=== PATIENT | female | born 1935 | race Caucasian/White ===

== ENCOUNTER → 2018-02-10 | Outpatient (CLI) | payer MEDICARE ==
[~2018-02-10] MED LIST: ASPIRIN81 MG PO; AZOPT10 ML OU; BENEFIBER1 EACH; BENEFIBER1 EACH PO; CLARITIN-D 241 EACH PO; CLORAZEPATE DI7.5 MG PO; COUMADIN5 MG PO; DEXILANT60 MG PO; DIOVAN160 MG PO; DOXEPIN HCL50 MG PO; HUMALOG100 UNITS/ SQ; HYDROCHLOROTHIA25 MG PO; LANTUS100 UNITS/ SQ; LEVOTHYROXINE100 MCG PO; LIPITOR40 MG PO; PROCARDIA XL30 MG PO; PROPRANOLOL HCL20 MG PO; TRAVATAN Z5 ML OU; WARFARIN SODIU2.5 MG PO; XARELTO20 MG; Z.0.DIOVAN160 MG PO; Z.0.TERAZOSIN HCL5 M
--- NOTE | 2018-02-10 16:47 | Diagnostic Imaging Report ---
Exam: Right shoulder 2 views History: Pain Comparison: None. Findings: No fracture or malalignment. Narrowing of the acromiohumeral interval with spurring. 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 No abnormal soft tissue calcification or soft tissue defect. Impression: No acute osseous abnormality Radiographic findings of chronic full-thickness rotator cuff tear Signed by: Dr. Ta Davies M.D. on 02/10/2018 4:44 PM
== END ==
LOC: RAD 15:19
DX: M25.511 Pain in right shoulder (principal)

== ENCOUNTER → 2020-03-08 | Day surgery (SDC) | payer MEDICARE, OTHER ==
[~2020-03-08] MED LIST changes: +FENTANYL CITRATE/PF 100MCG/2 ML INJ ONE; +IRBESARTAN150 MG PO; +METOPROLOL SUCC25 MG PO; +MIDAZOLAM HCL 2 MG/2 ML VIAL ONE; +OR PHACO EYE KIT ONE; +PREOP PHACO EYE KIT ONE; +TOBRAMYCIN/DEXAMETHASONE(OPTH) 3.5 GM TUBE ONE
[2020-03-08 10:15] LABS: INR 1.06; PROTHROMBIN TIME 14.3 seconds (11.9-14.5)
[2020-03-08 10:19] LABS: PARTIAL THROMBOPLASTIN TIME 35.3 seconds (23.8-35.5)
[2020-03-08 11:35] VITALS: BP 141/58
== END | disposition home or self-care (01) ==
LOC: OR 08:39
PROVIDERS: ATTEND Ophthalmology
DX: H25.12 Age-related nuclear cataract, left eye (principal); I48.92 Unspecified atrial flutter; I45.10 Unspecified right bundle-branch block; E11.9 Type 2 diabetes mellitus without complications; I10 Essential (primary) hypertension; E78.5 Hyperlipidemia, unspecified; M19.90 Unspecified osteoarthritis, unspecified site; F41.9 Anxiety disorder, unspecified; Z88.6 Allergy status to analgesic agent; Z88.0 Allergy status to penicillin; Z88.8 Allergy status to other drugs, medicaments and biological substances; Z01.812 Encounter for preprocedural laboratory examination; Z11.59 Encounter for screening for other viral diseases; Z79.01 Long term (current) use of anticoagulants; Z79.4 Long term (current) use of insulin
CPT/HCPCS: 36415; 66984; 82948; 85610; 85730; U0002; J2250; J3010; V2632

== ENCOUNTER → 2020-03-22 | Day surgery (SDC) | payer MEDICARE ==
[2020-03-22 11:10] VITALS: BP 151/64
== END | disposition home or self-care (01) ==
LOC: OR 08:41
PROVIDERS: ATTEND Ophthalmology
DX: H25.11 Age-related nuclear cataract, right eye (principal); I48.92 Unspecified atrial flutter; R53.1 Weakness; M19.90 Unspecified osteoarthritis, unspecified site; C69.91 Malignant neoplasm of unspecified site of right eye; I10 Essential (primary) hypertension; E78.5 Hyperlipidemia, unspecified; E11.9 Type 2 diabetes mellitus without complications; E03.9 Hypothyroidism, unspecified; K28.9 Gastrojejunal ulcer, unspecified as acute or chronic, without hemorrhage or perforation; F41.9 Anxiety disorder, unspecified; Z88.6 Allergy status to analgesic agent; Z88.0 Allergy status to penicillin; Z88.8 Allergy status to other drugs, medicaments and biological substances; Z79.01 Long term (current) use of anticoagulants; Z79.4 Long term (current) use of insulin
CPT/HCPCS: 36415; 66984; 82948; J2250; J3010; V2632

== ENCOUNTER 2020-12-28 13:19 | Emergency (ER) | payer MEDICARE ==
[~2020-12-28] VITALS: Ht 172.7 cm; Wt 81.6 kg
[~2020-12-28 13:19] MED LIST changes: -FENTANYL CITRATE/PF 100MCG/2 ML INJ ONE; -MIDAZOLAM HCL 2 MG/2 ML VIAL ONE; -OR PHACO EYE KIT ONE; -PREOP PHACO EYE KIT ONE; -TOBRAMYCIN/DEXAMETHASONE(OPTH) 3.5 GM TUBE ONE
[2020-12-28] MEDS ORDERED: CASIRIVIMAB/IMDEVIMAB 10 ML in SODIUM CHLORIDE 0.9% 100 ML IV ONE (13:45)
== END 2020-12-28 16:41 | disposition home or self-care (01) ==
LOC: ER 13:59
DX: U07.1 COVID-19 (principal); S00.93XA Contusion of unspecified part of head, initial encounter; W01.0XXA Fall on same level from slipping, tripping and stumbling without subsequent striking against object, initial encounter; Z91.81 History of falling; Y92.014 Private driveway to single-family (private) house as the place of occurrence of the external cause
CPT/HCPCS: 70450; 70486; 71045; 72170; 99284; J7050

== ENCOUNTER 2022-01-11 18:03 | Emergency (ER) | payer MEDICARE ==
[~2022-01-11] VITALS: Ht 172.7 cm; Wt 81.6 kg
[2022-01-11] MEDS ORDERED: BEBTELOVIMAB 175 MG INJ IV ONE ×2 (19:15→19:23)
[2022-01-11 22:31] VITALS: BP 128/86
== END 2022-01-11 20:10 | disposition home or self-care (01) ==
LOC: ER 18:10
DX: R50.9 Fever, unspecified (principal); U07.1 COVID-19; R05.9 Cough, unspecified; I10 Essential (primary) hypertension; E11.9 Type 2 diabetes mellitus without complications; I48.91 Unspecified atrial fibrillation; I25.10 Atherosclerotic heart disease of native coronary artery without angina pectoris; E78.5 Hyperlipidemia, unspecified; D64.9 Anemia, unspecified; E66.01 Morbid (severe) obesity due to excess calories; Z85.89 Personal history of malignant neoplasm of other organs and systems
CPT/HCPCS: 99283; U0002

== ENCOUNTER 2022-09-17 08:45 | Inpatient (IN) | payer MEDICARE ==
[~2022-09-17] VITALS: Ht 157.5 cm; Wt 99.8 kg
[2022-09-17 09:31] LABS: BASOPHILS % 0.3 % (0.0-1.0); EOSINOPHILS # (AUTO) 0.4 (0.0-0.4); EOSINOPHILS % 4.8 % (0.0-6.0); LYMPHOCYTES # (AUTO) 0.8 (1.0-3.2); LYMPHOCYTES % 10.5 % (18.0-39.1); MEAN CORPUSCULAR HEMOGLOBIN 20.5 pg (28-32); MEAN CORPUSCULAR HGB CONC 27.4 g/dL (31-35); MEAN CORPUSCULAR VOLUME 74.7 fL (81-99); MONOCYTES # (AUTO) 0.8 (0.2-0.8); MONOCYTES % 10.1 % (4.4-11.3); NEUTROPHILS # (AUTO) 5.7 (2.1-6.9); NEUTROPHILS % 73.5 % (38.7-80.0); PLATELET COUNT 200 x10e3/uL (140-360); RED BLOOD COUNT 2.88 x10e6/uL (3.6-5.1); RED CELL DISTRIBUTION WIDTH 16.9 % (11.7-14.4)
[2022-09-17 09:38] LABS: HEMATOCRIT 21.5 % (34.2-44.1); HEMOGLOBIN 5.9 g/dL (12.0-16.0)
[2022-09-17 09:50] LABS: INR 2.59; PROTHROMBIN TIME 28.2 seconds (11.9-14.5)
[2022-09-17 09:51] LABS: PARTIAL THROMBOPLASTIN TIME 53.1 seconds (23.8-35.5)
[2022-09-17 10:01] LABS: ALANINE AMINOTRANSFERASE 19 IU/L (0-55); ALBUMIN 3.2 g/dL (3.5-5.0); ALBUMIN/GLOBULIN RATIO 1.2 (0.8-2.0); ALKALINE PHOSPHATASE 150 IU/L (40-150); ANION GAP 9.5 mmol/L (8-16); BLOOD UREA NITROGEN 51 mg/dL (7-26); BUN/CREATININE RATIO 32 (6-25); CALCIUM 8.6 mg/dL (8.4-10.2); CARBON DIOXIDE 29 mmol/L (22-29); CHLORIDE 102 mmol/L (98-107); CREATINE KINASE 51 IU/L (29-168); CREATININE, SERUM 1.59 mg/dL (0.57-1.11); GLUCOSE 305 mg/dL (74-118); POTASSIUM 5.5 mmol/L (3.5-5.1); SODIUM 135 mmol/L (136-145)
[2022-09-17] MEDS ORDERED: SODIUM CHLORIDE FLUSH 10 ML SYR INJ PRN (12:15)
[2022-09-17] MEDS ORDERED: ACETAMINOPHEN 325 MG TAB PO STA (13:01)
[2022-09-17] MEDS ORDERED: DEXAMETHASONE SOD PHOS 10 MG/1 ML VIAL IV ONE (13:15)
[2022-09-17] MEDS ORDERED: FAMOTIDINE 20 MG/2 ML VIAL IV ONE (13:15)
[2022-09-17] MEDS ORDERED: SODIUM CHLORIDE 0.9% 250ML 250 ML IV ONE (13:15)
[2022-09-17] MEDS ORDERED: DIPHENHYDRAMINE HCL INJ 50 MG/ML VIAL IV ONE (13:15)
[2022-09-17] MEDS ORDERED: LACTATED RINGER'S 500 ML IV ONE (14:30)
[2022-09-17 15:00] LABS: ANION GAP 11.4 mmol/L (8-16); CALCIUM 8.6 mg/dL (8.4-10.2); CREATININE, SERUM 1.47 mg/dL (0.57-1.11)
[2022-09-17 15:07] LABS: POTASSIUM 5.4 mmol/L (3.5-5.1)
[2022-09-17] MEDS ORDERED: INSULIN REGULAR, HUMAN 100 UNIT/1 ML IV STA (15:10)
[2022-09-17] MEDS ORDERED: DEXTROSE 50% SYRINGE 50 ML IV ONE (15:15)
[2022-09-17] MEDS ORDERED: CALCIUM GLUC 1 G/50 ML NACL 50 ML IV ONE (15:30)
[2022-09-17 16:19] VITALS: BP 164/56; PULSE 72; RESP 20; TEMP 97.5; O2SAT 100
[2022-09-17 16:24] VITALS: BP 164/56; PULSE 72; RESP 20; TEMP 97.5; O2SAT 100
[2022-09-17 17:46] LABS: ANION GAP 11.9 mmol/L (8-16); CALCIUM 8.8 mg/dL (8.4-10.2); CREATININE, SERUM 1.47 mg/dL (0.57-1.11); POTASSIUM 4.9 mmol/L (3.5-5.1)
[2022-09-17] MEDS ORDERED: SODIUM CHLORIDE 0.9% 250ML 250 ML ONE ×2 (17:46→23:22)
[2022-09-17] MEDS ORDERED: FAMOTIDINE 20 MG/2 ML VIAL IV PRN (18:00)
[2022-09-17] MEDS ORDERED: ACETAMINOPHEN 325 MG TAB PO PRN (18:00)
[2022-09-17] MEDS ORDERED: DEXAMETHASONE SOD PHOS 10 MG/1 ML VIAL IV PRN (18:00)
[2022-09-17] MEDS ORDERED: DIPHENHYDRAMINE HCL INJ 50 MG/ML VIAL IV PRN (18:00)
[2022-09-17 20:00] VITALS: BP 154/61; PULSE 68; RESP 18; TEMP 97.7; O2SAT 100
[2022-09-17] MEDS ORDERED: DEXTROSE 50% SYRINGE 50 ML IV PRN (21:00)
[2022-09-17] MEDS ORDERED: INSULIN GLARGINE 100 UNITS/ML VIAL SQ SCH (21:00)
[2022-09-17] MEDS: INSULIN REGULAR, HUMAN 100 UNIT/1 ML SQ SCH (22:03)
[2022-09-17 22:33] VITALS: BP 154/61; PULSE 68; RESP 18; TEMP 97.7; O2SAT 100
[2022-09-18] VITALS (8 sets, daily range): BP systolic 114–156; BP diastolic 47–66; PULSE 58–81; RESP 16–18; TEMP 97.7–97.9; O2SAT 98–100
[2022-09-18 05:53] LABS: BASOPHILS % 0.1 % (0.0-1.0); EOSINOPHILS % 0.3 % (0.0-6.0); HEMOGLOBIN 8.6 g/dL (12.0-16.0); LYMPHOCYTES # (AUTO) 0.5 (1.0-3.2); LYMPHOCYTES % 6.7 % (18.0-39.1); MEAN CORPUSCULAR HEMOGLOBIN 22.9 pg (28-32); MEAN CORPUSCULAR HGB CONC 29.7 g/dL (31-35); MEAN CORPUSCULAR VOLUME 77.3 fL (81-99); MONOCYTES # (AUTO) 0.1 (0.2-0.8); MONOCYTES % 1.6 % (4.4-11.3); NEUTROPHILS # (AUTO) 6.8 (2.1-6.9); NEUTROPHILS % 90.1 % (38.7-80.0); PLATELET COUNT 212 x10e3/uL (140-360); RED BLOOD COUNT 3.75 x10e6/uL (3.6-5.1); RED CELL DISTRIBUTION WIDTH 19.1 % (11.7-14.4)
[2022-09-18 06:22] LABS: ALBUMIN 3.3 g/dL (3.5-5.0); ALBUMIN/GLOBULIN RATIO 1.2 (0.8-2.0); ANION GAP 12.1 mmol/L (8-16); CALCIUM 9.1 mg/dL (8.4-10.2); CREATININE, SERUM 1.44 mg/dL (0.57-1.11)
[2022-09-18 06:40] LABS: POTASSIUM 6.1 mmol/L (3.5-5.1)
[2022-09-18] MEDS ORDERED: SOD POLYSTYRENE SULFONATE SUSP 15 GM/60 ML BTL PO ONE ×2 (07:45→22:15)
[2022-09-18] MEDS ORDERED: INSULIN REGULAR, HUMAN 100 UNIT/1 ML IV ONE (07:45)
[2022-09-18] MEDS ORDERED: INSULIN LISPRO 100 UNIT/1 ML 3ML VIAL SQ SCH (07:45)
[2022-09-18] MEDS: INSULIN REGULAR, HUMAN 100 UNIT/1 ML SQ SCH ×4 (07:54→21:34)
[2022-09-18] MEDS: PANTOPRAZOLE SOD 40 MG TABEC PO SCH (08:05)
[2022-09-18] MEDS: LEVOTHYROXINE SODIUM 100 MCG TAB PO SCH (08:06)
[2022-09-18] MEDS: METOPROLOL TARTRATE 25 MG TAB PO SCH ×2 (08:06→18:34)
[2022-09-18] MEDS: ATORVASTATIN 40 MG TAB PO SCH (08:07)
[2022-09-18] MEDS: BRINZOLAMIDE 1% OPTH SUSP 10 ML BTL OU SCH ×2 (08:09→18:35)
[2022-09-18] MEDS: CALCIUM GLUC 1 G/50 ML NACL 50 ML IV SCH ×2 (08:35→10:34)
[2022-09-18] MEDS ORDERED: METOPROLOL SUCCINATE 25 MG TAB XL PO SCH (09:00)
[2022-09-18 10:10] LABS: ANION GAP 12.2 mmol/L (8-16); CALCIUM 9.2 mg/dL (8.4-10.2); CREATININE, SERUM 1.41 mg/dL (0.57-1.11); POTASSIUM 5.2 mmol/L (3.5-5.1)
[2022-09-18] MEDS: DOXEPIN HCL 25 MG CAP PO SCH ×2 (10:32→18:33)
[2022-09-18] MEDS: CLORAZEPATE DIPOTASSIUM 3.75 MG TAB PO SCH ×2 (10:32→18:33)
[2022-09-18] MEDS: INSULIN LISPRO 100 UNIT/1 ML 3ML VIAL SQ SCH ×2 (12:15→18:31)
[2022-09-18] MEDS ORDERED: HYDRALAZINE HCL 20 MG/ML VIAL IV PRN (15:30)
[2022-09-18 19:28] LABS: ANION GAP 12.7 mmol/L (8-16); CALCIUM 9.2 mg/dL (8.4-10.2); CREATININE, SERUM 1.52 mg/dL (0.57-1.11)
[2022-09-18 19:29] LABS: POTASSIUM 5.7 mmol/L (3.5-5.1)
[2022-09-18] MEDS: IRBESARTAN 150 MG TAB PO SCH (21:33)
[2022-09-18] MEDS: INSULIN GLARGINE 100 UNITS/ML VIAL SQ SCH (21:36)
[2022-09-18] MEDS: TRAVOPROST(OPTH) 2.5 ML BTL OP SCH (21:48)
[2022-09-18] MEDS ORDERED: INSULIN REGULAR, HUMAN 100 UNIT/1 ML SQ ONE (22:15)
[2022-09-18] MEDS: SENNA-S TABLET PO SCH (23:28)
[2022-09-19] VITALS (9 sets, daily range): BP systolic 107–150; BP diastolic 38–87; PULSE 54–67; RESP 16–22; TEMP 97.3–98.3; O2SAT 88–100
[2022-09-19 05:05] LABS: BASOPHILS % 0.2 % (0.0-1.0); EOSINOPHILS # (AUTO) 0.3 (0.0-0.4); EOSINOPHILS % 3.9 % (0.0-6.0); HEMOGLOBIN 7.6 g/dL (12.0-16.0); LYMPHOCYTES # (AUTO) 1.7 (1.0-3.2); LYMPHOCYTES % 20.1 % (18.0-39.1); MEAN CORPUSCULAR HEMOGLOBIN 22.8 pg (28-32); MEAN CORPUSCULAR HGB CONC 29.2 g/dL (31-35); MEAN CORPUSCULAR VOLUME 78.1 fL (81-99); MONOCYTES # (AUTO) 1.1 (0.2-0.8); MONOCYTES % 13.3 % (4.4-11.3); NEUTROPHILS # (AUTO) 5.3 (2.1-6.9); NEUTROPHILS % 62.1 % (38.7-80.0); PLATELET COUNT 209 x10e3/uL (140-360); RED BLOOD COUNT 3.33 x10e6/uL (3.6-5.1); RED CELL DISTRIBUTION WIDTH 19.7 % (11.7-14.4)
[2022-09-19 05:24] LABS: ANION GAP 9.8 mmol/L (8-16); CALCIUM 8.7 mg/dL (8.4-10.2); CREATININE, SERUM 1.65 mg/dL (0.57-1.11); POTASSIUM 4.8 mmol/L (3.5-5.1)
[2022-09-19] MEDS: INSULIN REGULAR, HUMAN 100 UNIT/1 ML SQ SCH ×4 (07:30→21:00)
[2022-09-19] MEDS: INSULIN LISPRO 100 UNIT/1 ML 3ML VIAL SQ SCH ×3 (08:00→16:50)
[2022-09-19] MEDS ORDERED: SODIUM CHLORIDE 0.9% 500ML 500 ML IV ONE (08:30)
[2022-09-19] MEDS: BRINZOLAMIDE 1% OPTH SUSP 10 ML BTL OU SCH ×2 (09:48→16:38)
[2022-09-19] MEDS: DOXEPIN HCL 25 MG CAP PO SCH ×2 (09:48→16:40)
[2022-09-19] MEDS: SENNA-S TABLET PO SCH ×2 (09:49→16:39)
[2022-09-19] MEDS: CLORAZEPATE DIPOTASSIUM 3.75 MG TAB PO SCH ×2 (09:49→16:40)
[2022-09-19] MEDS: PANTOPRAZOLE SOD 40 MG TABEC PO SCH (09:50)
[2022-09-19] MEDS: METOPROLOL TARTRATE 25 MG TAB PO SCH ×2 (09:50→16:44)
[2022-09-19] MEDS: LEVOTHYROXINE SODIUM 100 MCG TAB PO SCH (09:50)
[2022-09-19] MEDS: ATORVASTATIN 40 MG TAB PO SCH (09:52)
[2022-09-19] MEDS ORDERED: SODIUM CHLORIDE 0.9% 250ML 250 ML IV ONE (16:45)
[2022-09-19] MEDS: INSULIN GLARGINE 100 UNITS/ML VIAL SQ SCH (21:00)
[2022-09-19] MEDS ORDERED: SODIUM CHLORIDE 0.9% 250ML 250 ML ONE (21:22)
[2022-09-19] MEDS: TRAVOPROST(OPTH) 2.5 ML BTL OP SCH (21:55)
[2022-09-19] MEDS: IRBESARTAN 150 MG TAB PO SCH (21:56)
[2022-09-20] VITALS (10 sets, daily range): BP systolic 115–140; BP diastolic 44–99; PULSE 56–92; RESP 16–20; TEMP 97.3–98.1; O2SAT 92–100
[2022-09-20] MEDS ORDERED: ALBUTEROL SULFATE HFA 8GM INHALATION AEROSOL INH PRN (02:15)
[2022-09-20] MEDS ORDERED: FUROSEMIDE INJ 10 MG/ML 2 ML VIAL IV ONE (02:15)
[2022-09-20 05:40] LABS: CLARITY,URINE CLEAR (CLEAR); COLOR,URINE YELLOW (YELLOW); KETONES,URINE NEGATIVE (NEGATIVE); LEUKOCYTE ESTERASE ,URINE NEGATIVE (NEGATIVE); NITRITE,URINE NEGATIVE (NEGATIVE); PROTEIN,URINE DIPSTICK NEGATIVE (NEGATIVE); URINE UROBILINOGEN 0.2 mg/dL (0.2 - 1)
[2022-09-20 05:51] LABS: BACTERIA,URINE MODERATE /HPF; EPITHELIAL CELLS,URINE FEW /LPF
[2022-09-20] MEDS: ATORVASTATIN 40 MG TAB PO SCH (08:36)
[2022-09-20] MEDS: METOPROLOL TARTRATE 25 MG TAB PO SCH ×2 (08:38→17:30)
[2022-09-20] MEDS: PANTOPRAZOLE SOD 40 MG TABEC PO SCH (08:38)
[2022-09-20] MEDS: LEVOTHYROXINE SODIUM 100 MCG TAB PO SCH (08:39)
[2022-09-20] MEDS: DOXEPIN HCL 25 MG CAP PO SCH ×2 (08:39→23:13)
[2022-09-20] MEDS: CLORAZEPATE DIPOTASSIUM 3.75 MG TAB PO SCH ×2 (08:40→23:13)
[2022-09-20] MEDS: INSULIN REGULAR, HUMAN 100 UNIT/1 ML SQ SCH ×4 (08:45→21:00)
[2022-09-20] MEDS: INSULIN LISPRO 100 UNIT/1 ML 3ML VIAL SQ SCH ×3 (08:46→17:00)
[2022-09-20] MEDS: SENNA-S TABLET PO SCH ×2 (08:49→17:31)
[2022-09-20] MEDS: POLYETHYLENE GLYCOL 3350 17 GM PACK PO SCH (08:49)
[2022-09-20] MEDS: BRINZOLAMIDE 1% OPTH SUSP 10 ML BTL OU SCH ×2 (08:58→17:33)
[2022-09-20 10:10] LABS: BASOPHILS % 0.4 % (0.0-1.0); EOSINOPHILS # (AUTO) 0.5 (0.0-0.4); EOSINOPHILS % 6.9 % (0.0-6.0); HEMATOCRIT 31.7 % (34.2-44.1); HEMOGLOBIN 9.4 g/dL (12.0-16.0); LYMPHOCYTES # (AUTO) 1.2 (1.0-3.2); LYMPHOCYTES % 15.2 % (18.0-39.1); MEAN CORPUSCULAR HGB CONC 29.7 g/dL (31-35); MEAN CORPUSCULAR VOLUME 80.9 fL (81-99); MONOCYTES # (AUTO) 0.9 (0.2-0.8); NEUTROPHILS # (AUTO) 5.2 (2.1-6.9); PLATELET COUNT 209 x10e3/uL (140-360); RED BLOOD COUNT 3.92 x10e6/uL (3.6-5.1); RED CELL DISTRIBUTION WIDTH 20.5 % (11.7-14.4)
[2022-09-20 10:12] LABS: ALBUMIN 2.9 g/dL (3.5-5.0); ALBUMIN/GLOBULIN RATIO 1.2 (0.8-2.0); CALCIUM 8.3 mg/dL (8.4-10.2); CREATININE, SERUM 1.75 mg/dL (0.57-1.11)
[2022-09-20] MEDS ORDERED: BISACODYL 10 MG SUPP PR ONE (10:30)
[2022-09-20 12:09] LABS: INR 1.4; PROTHROMBIN TIME 17.7 seconds (11.9-14.5)
[2022-09-20] MEDS ORDERED: EPOETIN ALFA-EPBX 10,000 UNIT/ML VIAL SC ONE (14:30)
[2022-09-20 14:47] LABS: FERRITIN 13.4 ng/mL (4.63-204.00)
[2022-09-20] MEDS ORDERED: FUROSEMIDE INJ 10 MG/ML 4 ML VIAL IV ONE (18:15)
[2022-09-20] MEDS: INSULIN GLARGINE 100 UNITS/ML VIAL SQ SCH (21:00)
[2022-09-20] MEDS: TRAVOPROST(OPTH) 2.5 ML BTL OP SCH (23:12)
[2022-09-20] MEDS: IRBESARTAN 150 MG TAB PO SCH (23:14)
[2022-09-21] VITALS (7 sets, daily range): BP systolic 110–133; BP diastolic 46–80; PULSE 63–79; RESP 17–20; TEMP 97.3–97.9; O2SAT 95–100
[2022-09-21 04:55] LABS: BASOPHILS # (AUTO) 0.1 (0.0-0.1); BASOPHILS % 0.6 % (0.0-1.0); EOSINOPHILS # (AUTO) 0.9 (0.0-0.4); EOSINOPHILS % 9.7 % (0.0-6.0); HEMATOCRIT 35.2 % (34.2-44.1); HEMOGLOBIN 10.2 g/dL (12.0-16.0); LYMPHOCYTES # (AUTO) 1.2 (1.0-3.2); LYMPHOCYTES % 12.5 % (18.0-39.1); MEAN CORPUSCULAR HEMOGLOBIN 23.5 pg (28-32); MEAN CORPUSCULAR VOLUME 81.1 fL (81-99); MONOCYTES % 9.9 % (4.4-11.3); NEUTROPHILS # (AUTO) 6.5 (2.1-6.9); NEUTROPHILS % 66.9 % (38.7-80.0); PLATELET COUNT 233 x10e3/uL (140-360); RED BLOOD COUNT 4.34 x10e6/uL (3.6-5.1); RED CELL DISTRIBUTION WIDTH 20.4 % (11.7-14.4)
[2022-09-21 05:26] LABS: ALBUMIN 3.2 g/dL (3.5-5.0); ALBUMIN/GLOBULIN RATIO 1.1 (0.8-2.0); ANION GAP 13.8 mmol/L (8-16); CALCIUM 8.9 mg/dL (8.4-10.2); CREATININE, SERUM 1.54 mg/dL (0.57-1.11); MAGNESIUM 1.9 MG/DL (1.3-2.1); PHOSPHORUS 3.4 MG/DL (2.3-4.7); POTASSIUM 4.8 mmol/L (3.5-5.1)
[2022-09-21] MEDS: INSULIN REGULAR, HUMAN 100 UNIT/1 ML SQ SCH ×3 (07:30→15:34)
[2022-09-21] MEDS: INSULIN LISPRO 100 UNIT/1 ML 3ML VIAL SQ SCH ×3 (08:00→15:34)
[2022-09-21] MEDS: POLYETHYLENE GLYCOL 3350 17 GM PACK PO SCH (09:00)
[2022-09-21] MEDS ORDERED: FUROSEMIDE INJ 10 MG/ML 4 ML VIAL IV SCH (09:00)
[2022-09-21] MEDS: DOXEPIN HCL 25 MG CAP PO SCH (09:25)
[2022-09-21] MEDS: PANTOPRAZOLE SOD 40 MG TABEC PO SCH (09:25)
[2022-09-21] MEDS: ATORVASTATIN 40 MG TAB PO SCH (09:27)
[2022-09-21] MEDS: CLORAZEPATE DIPOTASSIUM 3.75 MG TAB PO SCH (09:27)
[2022-09-21] MEDS: LEVOTHYROXINE SODIUM 100 MCG TAB PO SCH (09:28)
[2022-09-21] MEDS: METOPROLOL TARTRATE 25 MG TAB PO SCH ×2 (09:28→17:25)
[2022-09-21] MEDS: SENNA-S TABLET PO SCH ×2 (09:28→17:25)
[2022-09-21] MEDS: BRINZOLAMIDE 1% OPTH SUSP 10 ML BTL OU SCH ×2 (09:29→17:25)
[2022-09-21] MEDS ORDERED: SODIUM FERRIC GLUCONATE COMPLX 125 MG in SODIUM CHLORIDE 0.9% 100 ML IV SCH (14:30)
[2022-09-21] MEDS ORDERED: SODIUM CHLORIDE 0.9% 250ML 250 ML ONE (14:50)
[2022-09-21] MEDS ORDERED: LASIX40 MG PO ×2 (18:01→18:45)
[2022-09-21] MEDS ORDERED: POTASSIUM CHLO20 ME2 PO (18:47)
== END 2022-09-21 19:34 | disposition home or self-care (01) | DRG 812 ==
LOC: ER 08:52 → ERHOLD 12:13 → MED/SURG2 16:08 → INTOOBSV 09-19 08:53 → OBSVTOIN 09-19 08:53 → UNDODISIN 09-20 03:30
PROVIDERS: ADMIT Family Medicine Adult Medicine; ATTEND Family Medicine Adult Medicine
PROC: 30233N1 Transfusion of Nonautologous Red Blood Cells into Peripheral Vein, Percutaneous Approach (ICD-10-PCS; principal; 2022-09-17)
DX: D50.9 Iron deficiency anemia, unspecified (principal); N17.9 Acute kidney failure, unspecified; I13.0 Hypertensive heart and chronic kidney disease with heart failure and stage 1 through stage 4 chronic kidney disease, or unspecified chronic kidney disease; I48.19 Other persistent atrial fibrillation; E11.22 Type 2 diabetes mellitus with diabetic chronic kidney disease; E87.5 Hyperkalemia; E11.65 Type 2 diabetes mellitus with hyperglycemia; I25.10 Atherosclerotic heart disease of native coronary artery without angina pectoris; E78.5 Hyperlipidemia, unspecified; M19.90 Unspecified osteoarthritis, unspecified site; I45.10 Unspecified right bundle-branch block; I50.9 Heart failure, unspecified; C69.20 Malignant neoplasm of unspecified retina; F41.8 Other specified anxiety disorders; I34.1 Nonrheumatic mitral (valve) prolapse; N18.30 Chronic kidney disease, stage 3 unspecified; I27.20 Pulmonary hypertension, unspecified; I35.0 Nonrheumatic aortic (valve) stenosis; Z88.0 Allergy status to penicillin; Z20.822 Contact with and (suspected) exposure to COVID-19; Z79.01 Long term (current) use of anticoagulants; Z79.4 Long term (current) use of insulin; Z85.820 Personal history of malignant melanoma of skin; Z86.718 Personal history of other venous thrombosis and embolism; Z85.048 Personal history of other malignant neoplasm of rectum, rectosigmoid junction, and anus
CPT/HCPCS: 0223U; 36415; 71045; 76770; 80048; 80053; 81001; 82550; 82553; 82607; 82728; 82746; 82948; 83540; 83735; 84100; 84466; 84484; 85025; 85045; 85610; 85730; 86850; 86900; 86920; 93005; 93306; 93970; 93971; 94664; 94799; 99252; 99284; G0378; J1100; J1200; J1815; J1940; J2916; J7040; J7050; J7799; P9016

== ENCOUNTER 2022-11-03 22:30 | Inpatient (IN) | payer MEDICARE ==
[~2022-11-03] VITALS: Ht 157.5 cm; Wt 98.9 kg
[~2022-11-03 22:30] MED LIST changes: +LASIX40 MG PO; +POTASSIUM CHLO20 ME2 PO
[2022-11-03] MEDS ORDERED: SODIUM CHLORIDE 0.9% 1000ML 1,000 ML IV STA ×3 (23:01→23:17)
[2022-11-03] MEDS ORDERED: ACETAMINOPHEN 1000 MG/100 ML IV STA (23:02)
[2022-11-03 23:03] LABS: BASOPHILS % 0.2 % (0.0-1.0); EOSINOPHILS # (AUTO) 0.7 (0.0-0.4); EOSINOPHILS % 7.3 % (0.0-6.0); HEMATOCRIT 23.4 % (34.2-44.1); HEMOGLOBIN 6.2 g/dL (12.0-16.0); LYMPHOCYTES % 10.7 % (18.0-39.1); MEAN CORPUSCULAR HEMOGLOBIN 21.5 pg (28-32); MEAN CORPUSCULAR HGB CONC 26.5 g/dL (31-35); MEAN CORPUSCULAR VOLUME 81.3 fL (81-99); MONOCYTES # (AUTO) 0.7 (0.2-0.8); MONOCYTES % 8.2 % (4.4-11.3); NEUTROPHILS # (AUTO) 6.5 (2.1-6.9); NEUTROPHILS % 72.9 % (38.7-80.0); PLATELET COUNT 261 x10e3/uL (140-360); RED BLOOD COUNT 2.88 x10e6/uL (3.6-5.1)
[2022-11-03 23:22] LABS: BENZODIAZEPINES SCREEN,URINE POSITIVE (NEGATIVE)
[2022-11-03] MEDS ORDERED: SODIUM CHLORIDE 0.9% 1000ML 2,000 ML ONE (23:22)
[2022-11-03 23:23] LABS: ALBUMIN 3.2 g/dL (3.5-5.0); ALBUMIN/GLOBULIN RATIO 1.2 (0.8-2.0); ANION GAP 14.2 mmol/L (8-16); CALCIUM 8.1 mg/dL (8.4-10.2); CREATININE, SERUM 2.97 mg/dL (0.57-1.11)
[2022-11-03 23:23] LABS: AMPHETAMINES SCREEN,URINE NEGATIVE (NEGATIVE); PHENCYCLIDINE SCREEN,URINE NEGATIVE (NEGATIVE)
[2022-11-03 23:27] LABS: POTASSIUM 5.2 mmol/L (3.5-5.1)
[2022-11-03] MEDS ORDERED: NOREPINEPHRINE 8 MG/D5W 250 ML 250 ML ONE (23:27)
[2022-11-03] MEDS ORDERED: SODIUM CHLORIDE 0.9% 250ML 250 ML IV ONE (23:30)
[2022-11-03] MEDS: NOREPINEPHRINE 8 MG/D5W 250 ML 250 ML IV SCH ×2 (23:42→23:45)
[2022-11-03] MEDS ORDERED: SODIUM CHLORIDE 0.9% 1000ML 1,000 ML IV SCH (23:45)
[2022-11-03 23:50] VITALS: PULSE 59; RESP 20; O2SAT 91
[2022-11-04] VITALS (120 sets, daily range): BP systolic 58–152; BP diastolic 23–110; PULSE 50–108; RESP 5–28; TEMP 94.8–99; O2SAT 86–100
[2022-11-04 00:22] LABS: ABG PH 7.22 (7.35-7.45)
[2022-11-04 00:23] LABS: ABG HCO3 26 mmol/L (22-26); ABG PCO2 63 mmHg (35-45); ABG PO2 107 mmHg (80-105); ABG TCO2 27
[2022-11-04] MEDS ORDERED: Vancomycin IV 1.25 GM in SODIUM CHLORIDE 0.9% 250ML 250 ML IV ONE (03:45)
[2022-11-04] MEDS ORDERED: HYDRALAZINE HCL 20 MG/ML VIAL IV PRN (03:45)
[2022-11-04] MEDS ORDERED: DOCUSATE SODIUM 100 MG CAP PO PRN (03:45)
[2022-11-04] MEDS ORDERED: ONDANSETRON HCL INJ 2MG/ML 2ML 2 MG/ML VIAL IV PRN (03:45)
[2022-11-04] MEDS ORDERED: MELATONIN 3 MG TAB PO PRN (03:45)
[2022-11-04] MEDS ORDERED: MAGNESIUM/ALUMINUM/SIMETHICONE 30 ML UDC PO PRN (03:45)
[2022-11-04] MEDS ORDERED: GUAIFENESIN/DEXTROMETHORPHAN LIQD 5 ML UDC PO PRN (03:45)
[2022-11-04 03:55] LABS: ABG PH 7.21 (7.35-7.45)
[2022-11-04 03:56] LABS: ABG HCO3 26 mmol/L (22-26); ABG PO2 135 mmHg (80-105); ABG TCO2 28
[2022-11-04 03:58] LABS: ABG PCO2 65 mmHg (35-45)
[2022-11-04] MEDS ORDERED: FUROSEMIDE INJ 10 MG/ML 4 ML VIAL IV ONE (04:00)
[2022-11-04] MEDS ORDERED: DEXTROSE 50% SYRINGE 50 ML IV PRN (04:30)
[2022-11-04] MEDS ORDERED: METHYLPREDNISOLONE SOD SUCC 125 MG/2ML VIAL IV SCH (04:45)
[2022-11-04] MEDS ORDERED: ACETAMINOPHEN 325 MG TAB PO PRN (05:00)
[2022-11-04] MEDS: NOREPINEPHRINE 8 MG/D5W 250 ML 250 ML IV SCH ×3 (05:25→19:13)
[2022-11-04] MEDS ORDERED: MEROPENEM 1 GM in SODIUM CHLORIDE 0.9% 100 ML IV SCH ×2 (06:00→10:00)
[2022-11-04] MEDS: ALBUTEROL SULF 0.083% NEB SOLN 3 ML NEB NEB SCH ×3 (06:50→18:55)
[2022-11-04 08:08] LABS: BASOPHILS % 0.2 % (0.0-1.0); EOSINOPHILS # (AUTO) 0.5 (0.0-0.4); EOSINOPHILS % 3.3 % (0.0-6.0); HEMOGLOBIN 9.2 g/dL (12.0-16.0); LYMPHOCYTES # (AUTO) 1.4 (1.0-3.2); LYMPHOCYTES % 9.1 % (18.0-39.1); MEAN CORPUSCULAR HEMOGLOBIN 24.3 pg (28-32); MEAN CORPUSCULAR HGB CONC 29.7 g/dL (31-35); MEAN CORPUSCULAR VOLUME 81.8 fL (81-99); MONOCYTES # (AUTO) 1.5 (0.2-0.8); MONOCYTES % 9.4 % (4.4-11.3); NEUTROPHILS # (AUTO) 12.1 (2.1-6.9); NEUTROPHILS % 76.7 % (38.7-80.0); PLATELET COUNT 278 x10e3/uL (140-360); RED BLOOD COUNT 3.79 x10e6/uL (3.6-5.1); RED CELL DISTRIBUTION WIDTH 18.6 % (11.7-14.4)
[2022-11-04 08:23] LABS: INR 1.95; PROTHROMBIN TIME 22.7 seconds (11.9-14.5)
[2022-11-04 08:32] LABS: ALBUMIN 3.1 g/dL (3.5-5.0); ALBUMIN/GLOBULIN RATIO 1.1 (0.8-2.0); ANION GAP 14.4 mmol/L (8-16); CALCIUM 7.8 mg/dL (8.4-10.2); CREATININE, SERUM 2.68 mg/dL (0.57-1.11); POTASSIUM 5.4 mmol/L (3.5-5.1)
[2022-11-04] MEDS: DOXEPIN HCL 25 MG CAP PO SCH ×3 (09:00→21:00)
[2022-11-04] MEDS: MULTIVITAMINS/MINERALS TAB PO SCH (09:00)
[2022-11-04] MEDS ORDERED: LEVOTHYROXINE SODIUM 100 MCG TAB PO SCH (09:00)
[2022-11-04 09:34] LABS: ABG HCO3 26 mmol/L (22-26); ABG PCO2 58 mmHg (35-45); ABG PH 7.27 (7.35-7.45); ABG PO2 62 mmHg (80-105); ABG TCO2 28
[2022-11-04] MEDS: FAMOTIDINE 20 MG/2 ML VIAL IV SCH (09:52)
[2022-11-04] MEDS: BRINZOLAMIDE 1% OPTH SUSP 10 ML BTL OU SCH ×2 (09:53→16:14)
[2022-11-04] MEDS: INSULIN REGULAR, HUMAN 100 UNIT/1 ML SQ SCH ×4 (09:56→21:00)
[2022-11-04] MEDS ORDERED: FUROSEMIDE INJ 10 MG/ML 2 ML VIAL IV ONE ×2 (10:35→14:55)
[2022-11-04] MEDS: MUPIROCIN 2% OINT 22 GM TUBE TOP SCH ×2 (12:10→21:20)
[2022-11-04] MEDS ORDERED: ZIPRASIDONE 20 MG VIAL IM ONE (17:15)
[2022-11-04] MEDS ORDERED: MIDAZOLAM HCL 5MG/ML 10ML VIAL 100 ML IV PRN (18:45)
[2022-11-04 19:55] LABS: ABG HCO3 30 mmol/L (22-26); ABG PCO2 52 mmHg (35-45); ABG PH 7.37 (7.35-7.45); ABG PO2 76 mmHg (80-105)
[2022-11-04 19:56] LABS: ABG TCO2 31
[2022-11-04] MEDS: DEXMEDETOMIDINE 400MCG/NS100ML 100 ML IV PRN (20:29)
[2022-11-04] MEDS: ATORVASTATIN 40 MG TAB PO SCH (21:00)
[2022-11-04] MEDS: TRAVOPROST(OPTH) 2.5 ML BTL OP SCH (21:20)
[2022-11-04] MEDS: FUROSEMIDE INJ 10 MG/ML 2 ML VIAL IV SCH (22:04)
[2022-11-05] VITALS (82 sets, daily range): BP systolic 81–148; BP diastolic 32–135; PULSE 47–93; RESP 11–22; TEMP 96.5–97.7; O2SAT 88–100
[2022-11-05] MEDS: DEXMEDETOMIDINE 400MCG/NS100ML 100 ML IV PRN ×3 (01:07→20:11)
[2022-11-05 04:12] LABS: CLARITY,URINE CLOUDY (CLEAR); COLOR,URINE YELLOW (YELLOW); KETONES,URINE NEGATIVE (NEGATIVE); LEUKOCYTE ESTERASE ,URINE 1+ (NEGATIVE); NITRITE,URINE NEGATIVE (NEGATIVE); PROTEIN,URINE DIPSTICK 1+ (NEGATIVE); URINE UROBILINOGEN 0.2 mg/dL (0.2 - 1)
[2022-11-05 04:23] LABS: CREATININE,URINE RANDOM 116.85 mg/dL (47-110)
[2022-11-05] MEDS ORDERED: ENOXAPARIN SOD INJ 40 MG/0.4 ML SYR SC STA (04:25)
[2022-11-05 04:32] LABS: BACTERIA,URINE MANY /HPF; EPITHELIAL CELLS,URINE FEW /LPF; RENAL EPITHELIAL CELLS,URINE FEW; WBC,URINE (MAN) >50 /HPF (0-5)
[2022-11-05 04:35] LABS: BODY FLUID APPEARANCE SL.CLOUDY; BODY FLUID COLOR YELLOW; BODY FLUID TYPE PLEURAL
[2022-11-05] MEDS: FUROSEMIDE INJ 10 MG/ML 2 ML VIAL IV SCH ×3 (05:25→21:44)
[2022-11-05] MEDS: NOREPINEPHRINE 8 MG/D5W 250 ML 250 ML IV SCH (05:25)
[2022-11-05] MEDS: LEVOTHYROXINE SODIUM 100 MCG TAB PO SCH (05:26)
[2022-11-05 05:30] LABS: BASOPHILS # (AUTO) 0.1 (0.0-0.1); BASOPHILS % 0.5 % (0.0-1.0); EOSINOPHILS # (AUTO) 0.9 (0.0-0.4); HEMATOCRIT 30.7 % (34.2-44.1); LYMPHOCYTES # (AUTO) 0.9 (1.0-3.2); LYMPHOCYTES % 7.2 % (18.0-39.1); MEAN CORPUSCULAR HGB CONC 29.3 g/dL (31-35); MEAN CORPUSCULAR VOLUME 81.9 fL (81-99); MONOCYTES # (AUTO) 1.3 (0.2-0.8); MONOCYTES % 10.1 % (4.4-11.3); NEUTROPHILS # (AUTO) 9.3 (2.1-6.9); NEUTROPHILS % 74.6 % (38.7-80.0); PLATELET COUNT 236 x10e3/uL (140-360); RED BLOOD COUNT 3.75 x10e6/uL (3.6-5.1)
[2022-11-05 05:35] LABS: INR 2.25; PROTHROMBIN TIME 25.3 seconds (11.9-14.5)
[2022-11-05 05:52] LABS: ALBUMIN 2.8 g/dL (3.5-5.0); ALBUMIN/GLOBULIN RATIO 1.2 (0.8-2.0); ANION GAP 13.4 mmol/L (8-16); CALCIUM 8.5 mg/dL (8.4-10.2); CREATININE, SERUM 1.92 mg/dL (0.57-1.11); PHOSPHORUS 3.7 MG/DL (2.3-4.7); POTASSIUM 4.4 mmol/L (3.5-5.1)
[2022-11-05] MEDS: ALBUTEROL SULF 0.083% NEB SOLN 3 ML NEB NEB SCH ×4 (07:23→19:10)
[2022-11-05] MEDS: INSULIN REGULAR, HUMAN 100 UNIT/1 ML SQ SCH ×4 (07:30→20:09)
[2022-11-05 08:32] LABS: FERRITIN 23.59 ng/mL (4.63-204.00)
[2022-11-05] MEDS: FAMOTIDINE 20 MG/2 ML VIAL IV SCH (08:39)
[2022-11-05] MEDS: MULTIVITAMINS/MINERALS TAB PO SCH (08:39)
[2022-11-05] MEDS: DOXEPIN HCL 25 MG CAP PO SCH ×3 (08:40→20:31)
[2022-11-05] MEDS: BRINZOLAMIDE 1% OPTH SUSP 10 ML BTL OU SCH ×3 (08:40→20:22)
[2022-11-05] MEDS: MUPIROCIN 2% OINT 22 GM TUBE TOP SCH ×2 (08:40→20:22)
[2022-11-05] MEDS ORDERED: CLORAZEPATE DIPOTASSIUM 3.75 MG TAB PO SCH (09:00)
[2022-11-05] MEDS: CLORAZEPATE DIPOTASSIUM 3.75 MG TAB PO SCH ×3 (10:04→20:31)
[2022-11-05 11:55] LABS: RBC,BODY FLUID 2 cells/uL; WBC,BODY FLUID 0 cells/uL
[2022-11-05] MEDS: LINEZOLID 600 MG/D5W 300ML 300 ML IV SCH (14:54)
[2022-11-05] MEDS: SODIUM FERRIC GLUCONATE COMPLX 125 MG in SODIUM CHLORIDE 0.9% 100 ML IV SCH (16:48)
[2022-11-05] MEDS: WARFARIN SOD 2 MG TAB PO SCH (17:22)
[2022-11-05] MEDS: ATORVASTATIN 40 MG TAB PO SCH ×2 (20:01→20:31)
[2022-11-05] MEDS: TRAVOPROST(OPTH) 2.5 ML BTL OP SCH (20:24)
[2022-11-05 21:10] LABS: TOTAL VOLUME, URINE 6100 ml/24hr (800-2000)
[2022-11-05 21:25] LABS: TOTAL PROTEIN 24HR, URINE 414.79939 mg/24hr (50-100); TOTAL PROTEIN, URINE < 6.8 mg/dL (1-14)
[2022-11-06] VITALS (89 sets, daily range): BP systolic 60–169; BP diastolic 28–135; PULSE 40–136; RESP 9–21; TEMP 97.6–98.6; O2SAT 21–100
[2022-11-06] MEDS: ALBUTEROL SULF 0.083% NEB SOLN 3 ML NEB NEB SCH ×4 (01:00→19:00)
[2022-11-06] MEDS: LINEZOLID 600 MG/D5W 300ML 300 ML IV SCH (02:00)
[2022-11-06] MEDS: DEXMEDETOMIDINE 400MCG/NS100ML 100 ML IV PRN ×4 (04:00→19:27)
[2022-11-06] MEDS: FUROSEMIDE INJ 10 MG/ML 2 ML VIAL IV SCH (05:02)
[2022-11-06] MEDS: LEVOTHYROXINE SODIUM 100 MCG TAB PO SCH (05:13)
[2022-11-06 07:33] LABS: BASOPHILS % 0.3 % (0.0-1.0); EOSINOPHILS # (AUTO) 0.5 (0.0-0.4); EOSINOPHILS % 6.4 % (0.0-6.0); HEMATOCRIT 31.9 % (34.2-44.1); HEMOGLOBIN 9.6 g/dL (12.0-16.0); LYMPHOCYTES # (AUTO) 0.7 (1.0-3.2); LYMPHOCYTES % 9.5 % (18.0-39.1); MEAN CORPUSCULAR HEMOGLOBIN 24.1 pg (28-32); MEAN CORPUSCULAR HGB CONC 30.1 g/dL (31-35); MEAN CORPUSCULAR VOLUME 80.2 fL (81-99); MONOCYTES # (AUTO) 0.8 (0.2-0.8); NEUTROPHILS # (AUTO) 5.7 (2.1-6.9); NEUTROPHILS % 73.4 % (38.7-80.0); PLATELET COUNT 214 x10e3/uL (140-360); RED BLOOD COUNT 3.98 x10e6/uL (3.6-5.1); RED CELL DISTRIBUTION WIDTH 19.7 % (11.7-14.4)
[2022-11-06 07:44] LABS: INR 2.47; PROTHROMBIN TIME 27.2 seconds (11.9-14.5)
[2022-11-06 08:03] LABS: ALBUMIN 2.8 g/dL (3.5-5.0); ALBUMIN/GLOBULIN RATIO 1.2 (0.8-2.0); ANION GAP 15.1 mmol/L (8-16); CALCIUM 8.9 mg/dL (8.4-10.2); CREATININE, SERUM 1.39 mg/dL (0.57-1.11); MAGNESIUM 1.7 MG/DL (1.3-2.1); POTASSIUM 4.1 mmol/L (3.5-5.1)
[2022-11-06] MEDS: INSULIN REGULAR, HUMAN 100 UNIT/1 ML SQ SCH ×4 (08:09→20:12)
[2022-11-06] MEDS: CLORAZEPATE DIPOTASSIUM 3.75 MG TAB PO SCH ×2 (09:00→20:10)
[2022-11-06] MEDS: MULTIVITAMINS/MINERALS TAB PO SCH (09:00)
[2022-11-06] MEDS: DOXEPIN HCL 25 MG CAP PO SCH ×2 (09:00→20:10)
[2022-11-06] MEDS: FAMOTIDINE 20 MG/2 ML VIAL IV SCH (09:08)
[2022-11-06] MEDS: MUPIROCIN 2% OINT 22 GM TUBE TOP SCH ×2 (09:08→20:10)
[2022-11-06] MEDS: BRINZOLAMIDE 1% OPTH SUSP 10 ML BTL OU SCH ×4 (09:09→20:14)
[2022-11-06] MEDS: SODIUM FERRIC GLUCONATE COMPLX 125 MG in SODIUM CHLORIDE 0.9% 100 ML IV SCH (10:00)
[2022-11-06] MEDS: WARFARIN SOD 2 MG TAB PO SCH (16:38)
[2022-11-06] MEDS: FUROSEMIDE INJ 10 MG/ML 4 ML VIAL IV SCH (17:44)
[2022-11-06] MEDS: CEFTRIAXONE 2 GM in SODIUM CHLORIDE 0.9% 100 ML IV SCH (17:45)
[2022-11-06] MEDS: ATORVASTATIN 40 MG TAB PO SCH (20:14)
[2022-11-06] MEDS: TRAVOPROST(OPTH) 2.5 ML BTL OP SCH (20:16)
[2022-11-07] VITALS (52 sets, daily range): BP systolic 112–171; BP diastolic 49–101; PULSE 39–120; RESP 12–33; TEMP 97.5–98; O2SAT 91–100
[2022-11-07] MEDS: DEXMEDETOMIDINE 400MCG/NS100ML 100 ML IV PRN (00:44)
[2022-11-07] MEDS: LEVOTHYROXINE SODIUM 100 MCG TAB PO SCH (04:58)
[2022-11-07 06:38] LABS: BASOPHILS % 0.4 % (0.0-1.0); EOSINOPHILS # (AUTO) 0.5 (0.0-0.4); EOSINOPHILS % 10.7 % (0.0-6.0); HEMOGLOBIN 9.5 g/dL (12.0-16.0); LYMPHOCYTES # (AUTO) 0.5 (1.0-3.2); LYMPHOCYTES % 11.2 % (18.0-39.1); MEAN CORPUSCULAR HEMOGLOBIN 23.8 pg (28-32); MEAN CORPUSCULAR HGB CONC 28.8 g/dL (31-35); MEAN CORPUSCULAR VOLUME 82.7 fL (81-99); MONOCYTES # (AUTO) 0.4 (0.2-0.8); MONOCYTES % 8.9 % (4.4-11.3); NEUTROPHILS # (AUTO) 3.1 (2.1-6.9); NEUTROPHILS % 68.4 % (38.7-80.0); PLATELET COUNT 192 x10e3/uL (140-360); RED BLOOD COUNT 3.99 x10e6/uL (3.6-5.1); RED CELL DISTRIBUTION WIDTH 19.7 % (11.7-14.4)
[2022-11-07 06:48] LABS: INR 2.64; PROTHROMBIN TIME 28.6 seconds (11.9-14.5)
[2022-11-07 07:00] LABS: ALBUMIN 2.5 g/dL (3.5-5.0); ALBUMIN/GLOBULIN RATIO 1.1 (0.8-2.0); ANION GAP 13.2 mmol/L (8-16); CALCIUM 8.7 mg/dL (8.4-10.2); CREATININE, SERUM 1.24 mg/dL (0.57-1.11); POTASSIUM 4.2 mmol/L (3.5-5.1)
[2022-11-07] MEDS: ALBUTEROL SULF 0.083% NEB SOLN 3 ML NEB NEB SCH ×4 (07:00→19:00)
[2022-11-07] MEDS: INSULIN REGULAR, HUMAN 100 UNIT/1 ML SQ SCH ×4 (08:12→21:00)
[2022-11-07] MEDS: DOXEPIN HCL 25 MG CAP PO SCH ×2 (09:00→21:00)
[2022-11-07] MEDS: BRINZOLAMIDE 1% OPTH SUSP 10 ML BTL OU SCH ×2 (09:00→17:00)
[2022-11-07] MEDS: MULTIVITAMINS/MINERALS TAB PO SCH (09:00)
[2022-11-07] MEDS: CLORAZEPATE DIPOTASSIUM 3.75 MG TAB PO SCH ×2 (09:00→21:00)
[2022-11-07] MEDS: MUPIROCIN 2% OINT 22 GM TUBE TOP SCH ×2 (09:00→21:00)
[2022-11-07] MEDS: FAMOTIDINE 20 MG/2 ML VIAL IV SCH (13:51)
[2022-11-07] MEDS: FUROSEMIDE INJ 10 MG/ML 4 ML VIAL IV SCH (13:51)
[2022-11-07] MEDS: SODIUM FERRIC GLUCONATE COMPLX 125 MG in SODIUM CHLORIDE 0.9% 100 ML IV SCH (13:52)
[2022-11-07] MEDS: WARFARIN SOD 2 MG TAB PO SCH (17:00)
[2022-11-07] MEDS ORDERED: FUROSEMIDE INJ 10 MG/ML 2 ML VIAL IV SCH (17:00)
[2022-11-07] MEDS: CEFTRIAXONE 2 GM in SODIUM CHLORIDE 0.9% 100 ML IV SCH (17:50)
[2022-11-07] MEDS ORDERED: DEXTROSE 5%/0.9% SOD CHL 500 ML IV ONE (18:45)
[2022-11-07] MEDS: TRAVOPROST(OPTH) 2.5 ML BTL OP SCH (21:00)
[2022-11-07] MEDS: ATORVASTATIN 40 MG TAB PO SCH (21:00)
[2022-11-07] MEDS: ZIPRASIDONE 20 MG VIAL IM PRN (21:12)
[2022-11-07] MEDS: VALPROATE SOD INJ 500 MG in SODIUM CHLORIDE 0.9% 100 ML INJ SCH (23:02)
[2022-11-08] VITALS (28 sets, daily range): BP systolic 85–157; BP diastolic 40–129; PULSE 75–135; RESP 14–27; TEMP 97.5–98.6; O2SAT 89–100
[2022-11-08] MEDS: ALBUTEROL SULF 0.083% NEB SOLN 3 ML NEB NEB SCH ×4 (01:00→19:30)
[2022-11-08] MEDS: LEVOTHYROXINE SODIUM 100 MCG TAB PO SCH (05:38)
[2022-11-08 06:48] LABS: BASOPHILS % 0.3 % (0.0-1.0); EOSINOPHILS % 10.9 % (0.0-6.0); HEMATOCRIT 33.7 % (34.2-44.1); HEMOGLOBIN 9.9 g/dL (12.0-16.0); LYMPHOCYTES # (AUTO) 0.6 (1.0-3.2); LYMPHOCYTES % 6.3 % (18.0-39.1); MEAN CORPUSCULAR HEMOGLOBIN 23.8 pg (28-32); MEAN CORPUSCULAR HGB CONC 29.4 g/dL (31-35); MONOCYTES # (AUTO) 0.8 (0.2-0.8); MONOCYTES % 8.7 % (4.4-11.3); NEUTROPHILS # (AUTO) 6.5 (2.1-6.9); NEUTROPHILS % 73.5 % (38.7-80.0); PLATELET COUNT 221 x10e3/uL (140-360); RED BLOOD COUNT 4.16 x10e6/uL (3.6-5.1)
[2022-11-08 07:03] LABS: INR 2.7; PROTHROMBIN TIME 29.1 seconds (11.9-14.5)
[2022-11-08 07:21] LABS: ALBUMIN 2.8 g/dL (3.5-5.0); ALBUMIN/GLOBULIN RATIO 1.3 (0.8-2.0); ANION GAP 15.4 mmol/L (8-16); CALCIUM 8.6 mg/dL (8.4-10.2); CREATININE, SERUM 1.28 mg/dL (0.57-1.11); MAGNESIUM 1.6 MG/DL (1.3-2.1); POTASSIUM 4.4 mmol/L (3.5-5.1)
[2022-11-08] MEDS: INSULIN REGULAR, HUMAN 100 UNIT/1 ML SQ SCH ×4 (07:30→20:44)
[2022-11-08 08:17] LABS: PLATELET ESTIMATE ADEQUATE; PLATELET MORPHOLOGY COMMENT FEW GIANT; RBC MORPHOLOGY COMMENT NORMAL
[2022-11-08] MEDS ORDERED: SODIUM CHLORIDE 0.9% 0 ML ONE (08:24)
[2022-11-08] MEDS: FAMOTIDINE 20 MG/2 ML VIAL IV SCH (08:26)
[2022-11-08] MEDS: METOPROLOL TARTRATE 25 MG TAB PO SCH ×2 (09:57→17:08)
[2022-11-08] MEDS: DOXEPIN HCL 25 MG CAP PO SCH ×2 (11:04→20:21)
[2022-11-08] MEDS: MULTIVITAMINS/MINERALS TAB PO SCH (11:04)
[2022-11-08] MEDS: CLORAZEPATE DIPOTASSIUM 3.75 MG TAB PO SCH ×2 (11:04→20:21)
[2022-11-08] MEDS: MUPIROCIN 2% OINT 22 GM TUBE TOP SCH ×2 (11:04→21:43)
[2022-11-08] MEDS: BRINZOLAMIDE 1% OPTH SUSP 10 ML BTL OU SCH ×2 (11:05→17:51)
[2022-11-08] MEDS: SODIUM FERRIC GLUCONATE COMPLX 125 MG in SODIUM CHLORIDE 0.9% 100 ML IV SCH (11:29)
[2022-11-08] MEDS: VALPROATE SOD INJ 500 MG in SODIUM CHLORIDE 0.9% 100 ML INJ SCH ×2 (11:29→21:42)
[2022-11-08] MEDS: WARFARIN SOD 2 MG TAB PO SCH (17:06)
[2022-11-08] MEDS: CEFTRIAXONE 2 GM in SODIUM CHLORIDE 0.9% 100 ML IV SCH (17:08)
[2022-11-08] MEDS: ATORVASTATIN 40 MG TAB PO SCH (20:22)
[2022-11-08] MEDS: TRAVOPROST(OPTH) 2.5 ML BTL OP SCH (21:43)
[2022-11-09] VITALS (19 sets, daily range): BP systolic 51–135; BP diastolic 33–116; PULSE 65–89; RESP 15–34; TEMP 97.5–97.8; O2SAT 94–100
[2022-11-09] MEDS: ZIPRASIDONE 20 MG VIAL IM PRN (00:09)
[2022-11-09] MEDS: ALBUTEROL SULF 0.083% NEB SOLN 3 ML NEB NEB SCH ×3 (07:00→18:55)
[2022-11-09 07:10] LABS: BASOPHILS % 0.5 % (0.0-1.0); EOSINOPHILS # (AUTO) 1.2 (0.0-0.4); EOSINOPHILS % 18.1 % (0.0-6.0); HEMATOCRIT 33.8 % (34.2-44.1); HEMOGLOBIN 9.6 g/dL (12.0-16.0); LYMPHOCYTES # (AUTO) 0.7 (1.0-3.2); LYMPHOCYTES % 10.7 % (18.0-39.1); MEAN CORPUSCULAR HEMOGLOBIN 23.6 pg (28-32); MEAN CORPUSCULAR HGB CONC 28.4 g/dL (31-35); MONOCYTES # (AUTO) 0.7 (0.2-0.8); MONOCYTES % 9.9 % (4.4-11.3); NEUTROPHILS % 60.5 % (38.7-80.0); PLATELET COUNT 225 x10e3/uL (140-360); RED BLOOD COUNT 4.07 x10e6/uL (3.6-5.1); RED CELL DISTRIBUTION WIDTH 21.2 % (11.7-14.4)
[2022-11-09 07:31] LABS: ALBUMIN 2.6 g/dL (3.5-5.0); ALBUMIN/GLOBULIN RATIO 1.1 (0.8-2.0); CALCIUM 8.4 mg/dL (8.4-10.2); CREATININE, SERUM 1.09 mg/dL (0.57-1.11)
[2022-11-09] MEDS: MUPIROCIN 2% OINT 22 GM TUBE TOP SCH ×2 (08:14→21:15)
[2022-11-09] MEDS: FAMOTIDINE 20 MG/2 ML VIAL IV SCH (08:14)
[2022-11-09] MEDS: VALPROATE SOD INJ 500 MG in SODIUM CHLORIDE 0.9% 100 ML INJ SCH ×2 (08:14→21:13)
[2022-11-09] MEDS: BRINZOLAMIDE 1% OPTH SUSP 10 ML BTL OU SCH ×2 (08:14→16:46)
[2022-11-09] MEDS: FUROSEMIDE INJ 10 MG/ML 2 ML VIAL IV SCH ×2 (08:15→16:46)
[2022-11-09] MEDS: METOPROLOL TARTRATE 25 MG TAB PO SCH ×2 (08:15→16:46)
[2022-11-09] MEDS: LEVOTHYROXINE SODIUM 100 MCG TAB PO SCH (08:17)
[2022-11-09] MEDS: MULTIVITAMINS/MINERALS TAB PO SCH (08:17)
[2022-11-09] MEDS: CLORAZEPATE DIPOTASSIUM 3.75 MG TAB PO SCH ×2 (08:17→21:14)
[2022-11-09] MEDS: DOXEPIN HCL 25 MG CAP PO SCH ×2 (08:18→21:14)
[2022-11-09] MEDS: INSULIN REGULAR, HUMAN 100 UNIT/1 ML SQ SCH ×4 (08:19→21:00)
[2022-11-09] MEDS: SODIUM FERRIC GLUCONATE COMPLX 125 MG in SODIUM CHLORIDE 0.9% 100 ML IV SCH (09:39)
[2022-11-09 10:06] LABS: INR 3.83; PROTHROMBIN TIME 37.9 seconds (11.9-14.5)
[2022-11-09] MEDS: WARFARIN SOD 2 MG TAB PO SCH (16:46)
[2022-11-09] MEDS: CEFTRIAXONE 2 GM in SODIUM CHLORIDE 0.9% 100 ML IV SCH (16:49)
[2022-11-09] MEDS: TRAVOPROST(OPTH) 2.5 ML BTL OP SCH (21:00)
[2022-11-09] MEDS: ATORVASTATIN 40 MG TAB PO SCH (21:14)
[2022-11-10] VITALS (37 sets, daily range): BP systolic 83–139; BP diastolic 20–102; PULSE 61–121; RESP 10–26; TEMP 97.8–98.6; O2SAT 72–100
[2022-11-10] MEDS: ALBUTEROL SULF 0.083% NEB SOLN 3 ML NEB NEB SCH ×4 (01:55→19:25)
[2022-11-10] MEDS: LEVOTHYROXINE SODIUM 100 MCG TAB PO SCH (06:12)
[2022-11-10 06:50] LABS: INR 3.13; PROTHROMBIN TIME 33.9 seconds (11.9-14.5)
[2022-11-10 06:54] LABS: BASOPHILS # (AUTO) 0.1 (0.0-0.1); BASOPHILS % 0.8 % (0.0-1.0); EOSINOPHILS # (AUTO) 1.2 (0.0-0.4); EOSINOPHILS % 15.5 % (0.0-6.0); HEMATOCRIT 35.5 % (34.2-44.1); HEMOGLOBIN 9.8 g/dL (12.0-16.0); LYMPHOCYTES # (AUTO) 0.6 (1.0-3.2); LYMPHOCYTES % 7.6 % (18.0-39.1); MEAN CORPUSCULAR HEMOGLOBIN 23.7 pg (28-32); MEAN CORPUSCULAR HGB CONC 27.6 g/dL (31-35); MONOCYTES # (AUTO) 0.7 (0.2-0.8); MONOCYTES % 9.4 % (4.4-11.3); NEUTROPHILS # (AUTO) 5.1 (2.1-6.9); NEUTROPHILS % 65.9 % (38.7-80.0); PLATELET COUNT 213 x10e3/uL (140-360); RED BLOOD COUNT 4.13 x10e6/uL (3.6-5.1); RED CELL DISTRIBUTION WIDTH 21.5 % (11.7-14.4)
[2022-11-10 07:11] LABS: ALBUMIN 2.9 g/dL (3.5-5.0); ALBUMIN/GLOBULIN RATIO 1.2 (0.8-2.0); ANION GAP 14.2 mmol/L (8-16); CALCIUM 8.8 mg/dL (8.4-10.2); CREATININE, SERUM 1.11 mg/dL (0.57-1.11); POTASSIUM 4.2 mmol/L (3.5-5.1)
[2022-11-10] MEDS: INSULIN REGULAR, HUMAN 100 UNIT/1 ML SQ SCH ×4 (07:30→20:36)
[2022-11-10] MEDS: METOPROLOL TARTRATE 25 MG TAB PO SCH ×2 (08:48→17:21)
[2022-11-10] MEDS: CLORAZEPATE DIPOTASSIUM 3.75 MG TAB PO SCH ×2 (08:48→19:45)
[2022-11-10] MEDS: MULTIVITAMINS/MINERALS TAB PO SCH (08:48)
[2022-11-10] MEDS: FUROSEMIDE INJ 10 MG/ML 2 ML VIAL IV SCH ×2 (08:48→17:22)
[2022-11-10] MEDS: DOXEPIN HCL 25 MG CAP PO SCH ×2 (08:48→19:44)
[2022-11-10] MEDS: FAMOTIDINE 20 MG/2 ML VIAL IV SCH (08:49)
[2022-11-10] MEDS: BRINZOLAMIDE 1% OPTH SUSP 10 ML BTL OU SCH ×2 (08:49→17:22)
[2022-11-10] MEDS: MUPIROCIN 2% OINT 22 GM TUBE TOP SCH ×2 (08:49→19:51)
[2022-11-10] MEDS: VALPROATE SOD INJ 500 MG in SODIUM CHLORIDE 0.9% 100 ML INJ SCH ×2 (08:58→19:44)
[2022-11-10] MEDS: SODIUM FERRIC GLUCONATE COMPLX 125 MG in SODIUM CHLORIDE 0.9% 100 ML IV SCH (09:55)
[2022-11-10] MEDS: WARFARIN SOD 2 MG TAB PO SCH (17:00)
[2022-11-10] MEDS: ATORVASTATIN 40 MG TAB PO SCH (19:45)
[2022-11-10] MEDS: TRAVOPROST(OPTH) 2.5 ML BTL OP SCH (19:51)
[2022-11-11] VITALS (29 sets, daily range): BP systolic 71–137; BP diastolic 21–89; PULSE 59–85; RESP 10–23; TEMP 97.7–98; O2SAT 59–100
[2022-11-11] MEDS: ALBUTEROL SULF 0.083% NEB SOLN 3 ML NEB NEB SCH ×4 (01:25→19:20)
[2022-11-11] MEDS: LEVOTHYROXINE SODIUM 100 MCG TAB PO SCH (06:00)
[2022-11-11 06:47] LABS: BASOPHILS % 0.4 % (0.0-1.0); EOSINOPHILS # (AUTO) 0.8 (0.0-0.4); EOSINOPHILS % 7.8 % (0.0-6.0); HEMATOCRIT 35.7 % (34.2-44.1); HEMOGLOBIN 10.1 g/dL (12.0-16.0); LYMPHOCYTES # (AUTO) 0.7 (1.0-3.2); MEAN CORPUSCULAR HEMOGLOBIN 24.1 pg (28-32); MEAN CORPUSCULAR HGB CONC 28.3 g/dL (31-35); MEAN CORPUSCULAR VOLUME 85.2 fL (81-99); MONOCYTES # (AUTO) 0.6 (0.2-0.8); MONOCYTES % 5.5 % (4.4-11.3); NEUTROPHILS # (AUTO) 7.9 (2.1-6.9); NEUTROPHILS % 78.6 % (38.7-80.0); PLATELET COUNT 206 x10e3/uL (140-360); RED BLOOD COUNT 4.19 x10e6/uL (3.6-5.1); RED CELL DISTRIBUTION WIDTH 22.6 % (11.7-14.4)
[2022-11-11 06:52] LABS: INR 2.33; PROTHROMBIN TIME 26.8 seconds (11.9-14.5)
[2022-11-11 07:01] LABS: ALBUMIN 2.8 g/dL (3.5-5.0); ALBUMIN/GLOBULIN RATIO 1.2 (0.8-2.0); ANION GAP 18.3 mmol/L (8-16); CALCIUM 8.8 mg/dL (8.4-10.2); CREATININE, SERUM 1.37 mg/dL (0.57-1.11); POTASSIUM 4.3 mmol/L (3.5-5.1)
[2022-11-11] MEDS: INSULIN REGULAR, HUMAN 100 UNIT/1 ML SQ SCH ×4 (07:30→20:19)
[2022-11-11] MEDS: VALPROATE SOD INJ 500 MG in SODIUM CHLORIDE 0.9% 100 ML INJ SCH ×2 (08:27→20:19)
[2022-11-11] MEDS: MULTIVITAMINS/MINERALS TAB PO SCH (08:27)
[2022-11-11] MEDS: FAMOTIDINE 20 MG/2 ML VIAL IV SCH (08:28)
[2022-11-11] MEDS: METOPROLOL TARTRATE 25 MG TAB PO SCH ×2 (08:28→16:40)
[2022-11-11] MEDS: CLORAZEPATE DIPOTASSIUM 3.75 MG TAB PO SCH ×2 (08:28→20:18)
[2022-11-11] MEDS: DOXEPIN HCL 25 MG CAP PO SCH ×2 (08:28→20:18)
[2022-11-11] MEDS: BRINZOLAMIDE 1% OPTH SUSP 10 ML BTL OU SCH ×2 (09:20→16:41)
[2022-11-11] MEDS: SODIUM FERRIC GLUCONATE COMPLX 125 MG in SODIUM CHLORIDE 0.9% 100 ML IV SCH (10:05)
[2022-11-11] MEDS: WARFARIN SOD 2 MG TAB PO SCH (16:41)
[2022-11-11] MEDS: ATORVASTATIN 40 MG TAB PO SCH (20:18)
[2022-11-11] MEDS: TRAVOPROST(OPTH) 2.5 ML BTL OP SCH (20:20)
[2022-11-12] VITALS (31 sets, daily range): BP systolic 61–163; BP diastolic 39–147; PULSE 60–82; RESP 11–25; TEMP 97.4–97.8; O2SAT 79–100
[2022-11-12] MEDS: ALBUTEROL SULF 0.083% NEB SOLN 3 ML NEB NEB SCH ×4 (00:20→19:30)
[2022-11-12] MEDS: LEVOTHYROXINE SODIUM 100 MCG TAB PO SCH (05:19)
[2022-11-12 06:42] LABS: BASOPHILS % 0.3 % (0.0-1.0); EOSINOPHILS # (AUTO) 1.5 (0.0-0.4); EOSINOPHILS % 16.2 % (0.0-6.0); HEMATOCRIT 34.6 % (34.2-44.1); HEMOGLOBIN 10.1 g/dL (12.0-16.0); LYMPHOCYTES % 10.5 % (18.0-39.1); MEAN CORPUSCULAR HEMOGLOBIN 24.6 pg (28-32); MEAN CORPUSCULAR HGB CONC 29.2 g/dL (31-35); MEAN CORPUSCULAR VOLUME 84.2 fL (81-99); MONOCYTES # (AUTO) 0.9 (0.2-0.8); NEUTROPHILS # (AUTO) 5.8 (2.1-6.9); NEUTROPHILS % 61.9 % (38.7-80.0); PLATELET COUNT 219 x10e3/uL (140-360); RED BLOOD COUNT 4.11 x10e6/uL (3.6-5.1); RED CELL DISTRIBUTION WIDTH 23.5 % (11.7-14.4)
[2022-11-12 06:54] LABS: INR 2.67; PROTHROMBIN TIME 29.9 seconds (11.9-14.5)
[2022-11-12 07:06] LABS: ALBUMIN/GLOBULIN RATIO 1.3 (0.8-2.0); CALCIUM 8.7 mg/dL (8.4-10.2); CREATININE, SERUM 1.28 mg/dL (0.57-1.11)
[2022-11-12] MEDS: INSULIN REGULAR, HUMAN 100 UNIT/1 ML SQ SCH ×4 (07:30→20:41)
[2022-11-12 07:51] LABS: PLATELET ESTIMATE ADEQUATE; PLATELET MORPHOLOGY COMMENT NORMAL
[2022-11-12 07:52] LABS: RBC MORPHOLOGY COMMENT NORMAL
[2022-11-12 07:53] LABS: HYPOCHROMASIA SLIGHT
[2022-11-12] MEDS: DOXEPIN HCL 25 MG CAP PO SCH ×2 (09:21→21:14)
[2022-11-12] MEDS: MULTIVITAMINS/MINERALS TAB PO SCH (09:21)
[2022-11-12] MEDS: METOPROLOL TARTRATE 25 MG TAB PO SCH ×3 (09:22→19:34)
[2022-11-12] MEDS: BRINZOLAMIDE 1% OPTH SUSP 10 ML BTL OU SCH ×2 (09:23→19:33)
[2022-11-12] MEDS: VALPROATE SOD INJ 500 MG in SODIUM CHLORIDE 0.9% 100 ML INJ SCH (09:23)
[2022-11-12] MEDS: FAMOTIDINE 20 MG/2 ML VIAL IV SCH (09:29)
[2022-11-12] MEDS: SODIUM FERRIC GLUCONATE COMPLX 125 MG in SODIUM CHLORIDE 0.9% 100 ML IV SCH (09:39)
[2022-11-12] MEDS: QUETIAPINE FUMARATE 25 MG TAB PO SCH (21:14)
[2022-11-12] MEDS: ATORVASTATIN 40 MG TAB PO SCH (21:14)
[2022-11-12] MEDS: TRAVOPROST(OPTH) 2.5 ML BTL OP SCH (21:16)
[2022-11-13] VITALS (16 sets, daily range): BP systolic 97–156; BP diastolic 48–137; PULSE 55–95; RESP 11–21; TEMP 97.5–97.8; O2SAT 93–100
[2022-11-13] MEDS: ALBUTEROL SULF 0.083% NEB SOLN 3 ML NEB NEB SCH ×4 (00:15→19:00)
[2022-11-13 05:45] LABS: BASOPHILS % 0.3 % (0.0-1.0); EOSINOPHILS # (AUTO) 0.9 (0.0-0.4); HEMATOCRIT 32.7 % (34.2-44.1); HEMOGLOBIN 9.4 g/dL (12.0-16.0); LYMPHOCYTES # (AUTO) 0.8 (1.0-3.2); LYMPHOCYTES % 12.9 % (18.0-39.1); MEAN CORPUSCULAR HEMOGLOBIN 24.7 pg (28-32); MEAN CORPUSCULAR HGB CONC 28.7 g/dL (31-35); MEAN CORPUSCULAR VOLUME 85.8 fL (81-99); MONOCYTES # (AUTO) 0.6 (0.2-0.8); MONOCYTES % 9.9 % (4.4-11.3); NEUTROPHILS # (AUTO) 3.7 (2.1-6.9); NEUTROPHILS % 61.1 % (38.7-80.0); PLATELET COUNT 184 x10e3/uL (140-360); RED BLOOD COUNT 3.81 x10e6/uL (3.6-5.1); RED CELL DISTRIBUTION WIDTH 24.3 % (11.7-14.4)
[2022-11-13 05:59] LABS: INR 2.68
[2022-11-13] MEDS: LEVOTHYROXINE SODIUM 100 MCG TAB PO SCH (06:00)
[2022-11-13 06:11] LABS: ALBUMIN 2.8 g/dL (3.5-5.0); ALBUMIN/GLOBULIN RATIO 1.3 (0.8-2.0); ANION GAP 15.8 mmol/L (8-16); CALCIUM 8.6 mg/dL (8.4-10.2); CREATININE, SERUM 1.13 mg/dL (0.57-1.11); POTASSIUM 3.8 mmol/L (3.5-5.1)
[2022-11-13] MEDS: INSULIN REGULAR, HUMAN 100 UNIT/1 ML SQ SCH ×4 (07:30→21:00)
[2022-11-13] MEDS: METOPROLOL TARTRATE 25 MG TAB PO SCH ×3 (09:00→17:00)
[2022-11-13] MEDS: BRINZOLAMIDE 1% OPTH SUSP 10 ML BTL OU SCH ×2 (09:39→16:30)
[2022-11-13] MEDS: MULTIVITAMINS/MINERALS TAB PO SCH (09:39)
[2022-11-13] MEDS: DOXEPIN HCL 25 MG CAP PO SCH ×2 (09:39→21:00)
[2022-11-13] MEDS: SODIUM FERRIC GLUCONATE COMPLX 125 MG in SODIUM CHLORIDE 0.9% 100 ML IV SCH (09:39)
[2022-11-13] MEDS: FAMOTIDINE 20 MG/2 ML VIAL IV SCH (09:40)
[2022-11-13 10:43] LABS: HYPOCHROMASIA MODERATE; OVALOCYTES FEW; PLATELET ESTIMATE ADEQUATE; PLATELET MORPHOLOGY COMMENT NORMAL; RBC MORPHOLOGY COMMENT ABNORMAL
[2022-11-13 10:44] LABS: ANISOCYTOSIS MODERATE; MICROCYTOSIS SLIGHT; TARGET CELLS FEW
[2022-11-13] MEDS: FUROSEMIDE 40 MG TAB PO SCH (18:00)
[2022-11-13] MEDS: ATORVASTATIN 40 MG TAB PO SCH (21:00)
[2022-11-13] MEDS: TRAVOPROST(OPTH) 2.5 ML BTL OP SCH (21:00)
[2022-11-13] MEDS: QUETIAPINE FUMARATE 25 MG TAB PO SCH (21:00)
[2022-11-14] VITALS (65 sets, daily range): BP systolic 66–168; BP diastolic 13–114; PULSE 45–145; RESP 10–23; TEMP 97.6–98.1; O2SAT 90–100
[2022-11-14] MEDS: ALBUTEROL SULF 0.083% NEB SOLN 3 ML NEB NEB SCH ×4 (01:00→19:20)
[2022-11-14] MEDS: LEVOTHYROXINE SODIUM 100 MCG TAB PO SCH (05:41)
[2022-11-14] MEDS: FUROSEMIDE 40 MG TAB PO SCH ×2 (05:42→17:23)
[2022-11-14 06:11] LABS: BASOPHILS % 0.7 % (0.0-1.0); EOSINOPHILS # (AUTO) 0.6 (0.0-0.4); EOSINOPHILS % 10.3 % (0.0-6.0); HEMATOCRIT 35.7 % (34.2-44.1); HEMOGLOBIN 10.1 g/dL (12.0-16.0); LYMPHOCYTES # (AUTO) 0.5 (1.0-3.2); MEAN CORPUSCULAR HGB CONC 28.3 g/dL (31-35); MEAN CORPUSCULAR VOLUME 88.4 fL (81-99); MONOCYTES # (AUTO) 0.6 (0.2-0.8); MONOCYTES % 9.8 % (4.4-11.3); NEUTROPHILS # (AUTO) 4.3 (2.1-6.9); NEUTROPHILS % 70.2 % (38.7-80.0); PLATELET COUNT 157 x10e3/uL (140-360); RED BLOOD COUNT 4.04 x10e6/uL (3.6-5.1); RED CELL DISTRIBUTION WIDTH 24.4 % (11.7-14.4)
[2022-11-14 06:29] LABS: ALBUMIN 2.9 g/dL (3.5-5.0); ALBUMIN/GLOBULIN RATIO 1.2 (0.8-2.0); ANION GAP 16.8 mmol/L (8-16); CALCIUM 8.7 mg/dL (8.4-10.2); MAGNESIUM 1.9 MG/DL (1.3-2.1); POTASSIUM 3.8 mmol/L (3.5-5.1)
[2022-11-14] MEDS: INSULIN REGULAR, HUMAN 100 UNIT/1 ML SQ SCH ×4 (07:30→21:00)
[2022-11-14 08:43] LABS: INR 2.17; PROTHROMBIN TIME 25.3 seconds (11.9-14.5)
[2022-11-14] MEDS: POTASSIUM CHLORIDE 20 MEQ TAB CR PO SCH (09:15)
[2022-11-14] MEDS: BRINZOLAMIDE 1% OPTH SUSP 10 ML BTL OU SCH ×2 (09:15→17:26)
[2022-11-14] MEDS: DOXEPIN HCL 25 MG CAP PO SCH ×2 (09:15→21:00)
[2022-11-14] MEDS: MULTIVITAMINS/MINERALS TAB PO SCH (09:15)
[2022-11-14] MEDS: FAMOTIDINE 20 MG/2 ML VIAL IV SCH (09:16)
[2022-11-14] MEDS: METOPROLOL TARTRATE 25 MG TAB PO SCH ×2 (09:18→17:24)
[2022-11-14 11:41] LABS: ANISOCYTOSIS MARKED; HYPOCHROMASIA MODERATE; PLATELET ESTIMATE ADEQUATE; PLATELET MORPHOLOGY COMMENT NORMAL; RBC MORPHOLOGY COMMENT ABNORMAL
[2022-11-14] MEDS: CLORAZEPATE DIPOTASSIUM 3.75 MG TAB PO SCH (17:23)
[2022-11-14] MEDS: WARFARIN SOD 2 MG TAB PO SCH (17:23)
[2022-11-14] MEDS: QUETIAPINE FUMARATE 25 MG TAB PO SCH (21:00)
[2022-11-14] MEDS: TRAVOPROST(OPTH) 2.5 ML BTL OP SCH (21:00)
[2022-11-14] MEDS: ATORVASTATIN 40 MG TAB PO SCH (21:00)
[2022-11-14] MEDS: ZIPRASIDONE 20 MG VIAL IM PRN (21:13)
[2022-11-15] VITALS (38 sets, daily range): BP systolic 100–146; BP diastolic 63–95; PULSE 58–96; RESP 12–25; TEMP 96.9–97.7; O2SAT 95–100
[2022-11-15] MEDS: ALBUTEROL SULF 0.083% NEB SOLN 3 ML NEB NEB SCH ×4 (01:00→19:55)
[2022-11-15] MEDS: LEVOTHYROXINE SODIUM 100 MCG TAB PO SCH (06:00)
[2022-11-15] MEDS: FUROSEMIDE 40 MG TAB PO SCH ×2 (06:00→17:08)
[2022-11-15 06:52] LABS: INR 1.86; PROTHROMBIN TIME 22.4 seconds (11.9-14.5)
[2022-11-15] MEDS: POTASSIUM CHLORIDE 20 MEQ TAB CR PO SCH (08:45)
[2022-11-15] MEDS: METOPROLOL TARTRATE 25 MG TAB PO SCH ×3 (08:45→17:00)
[2022-11-15] MEDS: MULTIVITAMINS/MINERALS TAB PO SCH ×2 (08:45→09:12)
[2022-11-15] MEDS: DOXEPIN HCL 25 MG CAP PO SCH ×3 (08:46→20:57)
[2022-11-15] MEDS: CLORAZEPATE DIPOTASSIUM 3.75 MG TAB PO SCH ×3 (08:46→17:00)
[2022-11-15] MEDS: INSULIN REGULAR, HUMAN 100 UNIT/1 ML SQ SCH ×4 (08:50→20:58)
[2022-11-15] MEDS: BRINZOLAMIDE 1% OPTH SUSP 10 ML BTL OU SCH ×2 (08:51→17:16)
[2022-11-15] MEDS: FAMOTIDINE 20 MG/2 ML VIAL IV SCH (08:51)
[2022-11-15] MEDS: WARFARIN SOD 2 MG TAB PO SCH (17:00)
[2022-11-15] MEDS: TRAVOPROST(OPTH) 2.5 ML BTL OP SCH (20:57)
[2022-11-15] MEDS: ATORVASTATIN 40 MG TAB PO SCH (20:57)
[2022-11-15] MEDS ORDERED: QUETIAPINE FUMARATE 25 MG TAB PO SCH (21:00)
[2022-11-16] VITALS (14 sets, daily range): BP systolic 111–129; BP diastolic 55–89; PULSE 64–102; RESP 11–26; TEMP 96.8–97.3; O2SAT 96–100
[2022-11-16] MEDS: ALBUTEROL SULF 0.083% NEB SOLN 3 ML NEB NEB SCH ×2 (03:25→07:00)
[2022-11-16] MEDS: FUROSEMIDE 40 MG TAB PO SCH (06:00)
[2022-11-16] MEDS: LEVOTHYROXINE SODIUM 100 MCG TAB PO SCH (06:00)
[2022-11-16] MEDS ORDERED: SEROQUEL25 MG PO (07:23)
[2022-11-16] MEDS: INSULIN REGULAR, HUMAN 100 UNIT/1 ML SQ SCH (07:30)
[2022-11-16] MEDS ORDERED: MAGNESIUM SULF 1GRAM/DEXTROSE 100 ML IV ONE (08:30)
[2022-11-16] MEDS ORDERED: POTASSIUM CHLORIDE 20MEQ/100ML 100 ML IV ONE (08:30)
[2022-11-16] MEDS ORDERED: POTASSIUM CHLORIDE 20MEQ/100ML 200 ML IV ONE (08:30)
[2022-11-16] MEDS: FAMOTIDINE 20 MG/2 ML VIAL IV SCH (08:35)
[2022-11-16] MEDS: METOPROLOL TARTRATE 25 MG TAB PO SCH (08:36)
[2022-11-16] MEDS: POTASSIUM CHLORIDE 20 MEQ TAB CR PO SCH (08:36)
[2022-11-16] MEDS: DOXEPIN HCL 25 MG CAP PO SCH (08:36)
[2022-11-16] MEDS: CLORAZEPATE DIPOTASSIUM 3.75 MG TAB PO SCH (08:36)
[2022-11-16] MEDS: MULTIVITAMINS/MINERALS TAB PO SCH (08:36)
[2022-11-16] MEDS: BRINZOLAMIDE 1% OPTH SUSP 10 ML BTL OU SCH (08:37)
[2022-11-16 09:35] LABS: BASOPHILS % 0.4 % (0.0-1.0); EOSINOPHILS # (AUTO) 0.7 (0.0-0.4); EOSINOPHILS % 6.8 % (0.0-6.0); HEMATOCRIT 38.1 % (34.2-44.1); HEMOGLOBIN 11.2 g/dL (12.0-16.0); LYMPHOCYTES # (AUTO) 0.7 (1.0-3.2); LYMPHOCYTES % 7.7 % (18.0-39.1); MEAN CORPUSCULAR HEMOGLOBIN 25.6 pg (28-32); MEAN CORPUSCULAR HGB CONC 29.4 g/dL (31-35); MONOCYTES # (AUTO) 0.7 (0.2-0.8); NEUTROPHILS # (AUTO) 7.4 (2.1-6.9); NEUTROPHILS % 77.4 % (38.7-80.0); PLATELET COUNT 162 x10e3/uL (140-360); RED BLOOD COUNT 4.38 x10e6/uL (3.6-5.1); RED CELL DISTRIBUTION WIDTH 27.1 % (11.7-14.4)
[2022-11-16 09:47] LABS: INR 1.68; PROTHROMBIN TIME 20.7 seconds (11.9-14.5)
[2022-11-16 10:07] LABS: ANION GAP 18.5 mmol/L (8-16); CALCIUM 8.7 mg/dL (8.4-10.2); CREATININE, SERUM 1.06 mg/dL (0.57-1.11); POTASSIUM 3.5 mmol/L (3.5-5.1)
[2022-11-16 10:59] LABS: ANISOCYTOSIS MARKED; HYPOCHROMASIA SLIGHT; PLATELET ESTIMATE ADEQUATE; PLATELET MORPHOLOGY COMMENT NORMAL; RBC MORPHOLOGY COMMENT ABNORMAL
== END 2022-11-16 13:10 | disposition home health service (06) | DRG 871 ==
LOC: ER 22:35 → ERHOLD 23:44 → ICU 11-04 00:29
PROVIDERS: ADMIT Family Medicine Adult Medicine; ATTEND Family Medicine Adult Medicine
PROC: 0W9930Z Drainage of Right Pleural Cavity with Drainage Device, Percutaneous Approach (ICD-10-PCS; principal; 2022-11-04)
PROC: 0W9B30Z Drainage of Left Pleural Cavity with Drainage Device, Percutaneous Approach (ICD-10-PCS; 2022-11-04)
PROC: 30233N1 Transfusion of Nonautologous Red Blood Cells into Peripheral Vein, Percutaneous Approach (ICD-10-PCS; 2022-11-04)
PROC: 5A09457 Assistance with Respiratory Ventilation, 24-96 Consecutive Hours, Continuous Positive Airway Pressure (ICD-10-PCS; 2022-11-04)
PROC: 0W9930Z Drainage of Right Pleural Cavity with Drainage Device, Percutaneous Approach (ICD-10-PCS; 2022-11-04)
PROC: 30233N1 Transfusion of Nonautologous Red Blood Cells into Peripheral Vein, Percutaneous Approach (ICD-10-PCS; 2022-11-04)
PROC: 3E033XZ Introduction of Vasopressor into Peripheral Vein, Percutaneous Approach (ICD-10-PCS; 2022-11-04)
PROC: 02HV33Z Insertion of Infusion Device into Superior Vena Cava, Percutaneous Approach (ICD-10-PCS; 2022-11-07)
DX: A41.9 Sepsis, unspecified organism (principal); G93.41 Metabolic encephalopathy; I50.33 Acute on chronic diastolic (congestive) heart failure; J96.01 Acute respiratory failure with hypoxia; R65.21 Severe sepsis with septic shock; J96.02 Acute respiratory failure with hypercapnia; J69.0 Pneumonitis due to inhalation of food and vomit; N39.0 Urinary tract infection, site not specified; N17.9 Acute kidney failure, unspecified; Z16.11 Resistance to penicillins; I13.0 Hypertensive heart and chronic kidney disease with heart failure and stage 1 through stage 4 chronic kidney disease, or unspecified chronic kidney disease; J90 Pleural effusion, not elsewhere classified; Z68.42 Body mass index [BMI] 45.0-49.9, adult; I48.92 Unspecified atrial flutter; Z20.822 Contact with and (suspected) exposure to COVID-19; I25.10 Atherosclerotic heart disease of native coronary artery without angina pectoris; M19.90 Unspecified osteoarthritis, unspecified site; E66.01 Morbid (severe) obesity due to excess calories; Z88.0 Allergy status to penicillin; Z59.10 Inadequate housing, unspecified; Z63.9 Problem related to primary support group, unspecified; Z79.4 Long term (current) use of insulin; E87.5 Hyperkalemia; N18.30 Chronic kidney disease, stage 3 unspecified; E11.22 Type 2 diabetes mellitus with diabetic chronic kidney disease; E03.9 Hypothyroidism, unspecified; D63.1 Anemia in chronic kidney disease; D50.9 Iron deficiency anemia, unspecified; T68.XXXA Hypothermia, initial encounter; I27.20 Pulmonary hypertension, unspecified; E11.65 Type 2 diabetes mellitus with hyperglycemia; B96.1 Klebsiella pneumoniae [K. pneumoniae] as the cause of diseases classified elsewhere; E11.649 Type 2 diabetes mellitus with hypoglycemia without coma; F03.90 Unspecified dementia, unspecified severity, without behavioral disturbance, psychotic disturbance, mood disturbance, and anxiety; F32.A Depression, unspecified; F29 Unspecified psychosis not due to a substance or known physiological condition; S61.402A Unspecified open wound of left hand, initial encounter; E11.51 Type 2 diabetes mellitus with diabetic peripheral angiopathy without gangrene; E78.2 Mixed hyperlipidemia; I48.0 Paroxysmal atrial fibrillation; Z79.01 Long term (current) use of anticoagulants; Z78.1 Physical restraint status; Z85.820 Personal history of malignant melanoma of skin
CPT/HCPCS: 36415; 36569; 36600; 70450; 71045; 74176; 74230; 80048; 80053; 80307; 81001; 81050; 82140; 82150; 82533; 82550; 82570; 82728; 82805; 82945; 82948; 83540; 83605; 83615; 83690; 83735; 83880; 84100; 84156; 84157; 84165; 84300; 84443; 84466; 84484; 84550; 85025; 85379; 85610; 86021; 86039; 86160; 86850; 86900; 86920; 87040; 87070; 87071; 87075; 87086; 87186; 87205; 89051; 93005; 93306; 93970; 94660; 94799; 95819; 96372; 99252; 99285; J0696; J1650; J1940; J2020; J2185; J2405; J2916; J3486; J7030; J7042; J7050; J7799; P9016

== ENCOUNTER 2024-12-14 13:55 | Observation (INO) | payer MEDICARE ==
[~2024-12-14] VITALS: Ht 157.5 cm; Wt 92.1 kg
[~2024-12-14 13:55] MED LIST changes: +SEROQUEL25 MG PO
[2024-12-14 15:17] LABS: BASOPHILS % 0.2 % (0.0-1.0); EOSINOPHILS % 6.6 % (0.0-6.0); LYMPHOCYTES % 10.7 % (18.0-39.1); MONOCYTES % 8.1 % (4.4-11.3); NEUTROPHILS % 73.7 % (38.7-80.0); RED CELL DISTRIBUTION WIDTH 15.9 % (11.7-14.4)
[2024-12-14 15:37] LABS: EST GLOMERULAR FILTRATION RATE 34.0 ML/MIN (>=60)
[2024-12-14 15:50] LABS: % IRON SATURATION 117.0 % (15-50)
[2024-12-14] MEDS ORDERED: SODIUM CHLORIDE FLUSH 10 ML SYR INJ PRN (16:00)
[2024-12-14] MEDS ORDERED: ONDANSETRON HCL INJ 2MG/ML 2ML 2 MG/ML VIAL IV PRN ×2 (16:00→23:00)
[2024-12-14 17:37] VITALS: PULSE 71; RESP 18; TEMP 97.9
[2024-12-14] MEDS ORDERED: FUROSEMIDE40 MG PO (18:42)
[2024-12-14] MEDS ORDERED: WARFARIN SODIUM1 MG PO (18:47)
[2024-12-14] MEDS ORDERED: WARFARIN SODIUM2 MG PO (18:47)
[2024-12-14] MEDS ORDERED: DOXYCYCLINE HY100 MG PO (18:48)
[2024-12-14 20:00] VITALS: BP 124/50; PULSE 65; RESP 20; TEMP 94; O2SAT 100
[2024-12-14 21:00] VITALS: BP 124/50; PULSE 65; RESP 20; TEMP 94; O2SAT 100
[2024-12-14] MEDS ORDERED: ACETAMINOPHEN 325 MG TAB PO PRN (23:00)
[2024-12-14] MEDS ORDERED: HYDRALAZINE HCL 20 MG/ML VIAL IV PRN (23:00)
[2024-12-14] MEDS ORDERED: BISACODYL 10 MG SUPP PR PRN (23:00)
[2024-12-14] MEDS ORDERED: POLYETHYLENE GLYCOL 3350 17 GM PACK PO PRN (23:00)
[2024-12-15] VITALS: BP 142/35; PULSE 71; RESP 20; TEMP 97.5; O2SAT 100
[2024-12-15] MEDS: SODIUM CHLORIDE 0.9% 250ML 250 ML IV ONE (01:06)
[2024-12-15] MEDS: SODIUM CHLORIDE 0.9% 100 ML ONE (01:06)
[2024-12-15 04:00] VITALS: BP 130/58; PULSE 76; RESP 18; TEMP 98.5; O2SAT 99
[2024-12-15 06:48] LABS: BASOPHILS % 0.2 % (0.0-1.0); EOSINOPHILS % 4.3 % (0.0-6.0); LYMPHOCYTES % 12.9 % (18.0-39.1); MONOCYTES % 8.8 % (4.4-11.3); NEUTROPHILS % 73.1 % (38.7-80.0); RED CELL DISTRIBUTION WIDTH 17.5 % (11.7-14.4)
[2024-12-15 07:20] LABS: INR 2.51
[2024-12-15 07:25] LABS: EST GLOMERULAR FILTRATION RATE 37.0 ML/MIN (>=60)
[2024-12-15 08:31] VITALS: BP 163/37; PULSE 63; RESP 18; TEMP 98.1; O2SAT 99
[2024-12-15] MEDS: DOXEPIN HCL 25 MG CAP PO SCH (09:00)
[2024-12-15] MEDS: ATORVASTATIN 40 MG TAB PO SCH (09:00)
[2024-12-15] MEDS: DOCUSATE SODIUM 100 MG CAP PO SCH (09:00)
[2024-12-15] MEDS: SENNOSIDES 8.6 MG TAB PO SCH (09:00)
[2024-12-15] MEDS: LEVOTHYROXINE SODIUM 100 MCG TAB PO SCH (09:16)
[2024-12-15] MEDS: FUROSEMIDE 40 MG TAB PO SCH (09:22)
[2024-12-15] MEDS ORDERED: SODIUM CHLORIDE 0.9% 250ML 250 ML IV ONE (10:30)
[2024-12-15] MEDS ORDERED: DEXTROSE 50% SYRINGE 50 ML IV PRN (12:45)
[2024-12-15 13:21] VITALS: BP 139/60; PULSE 70; RESP 18; TEMP 97.9; O2SAT 99
[2024-12-15] MEDS: SOD POLYSTYRENE SULFONATE SUSP 15 GM/60 ML BTL PO ONE (13:23)
[2024-12-15] MEDS: INSULIN LISPRO 100 UNIT/1 ML 3ML VIAL SQ SCH (13:27)
[2024-12-15 16:12] VITALS: BP 125/32; PULSE 63; RESP 18; TEMP 98; O2SAT 98
[2024-12-15] MEDS ORDERED: INSULIN LISPRO 100 UNIT/1 ML 3ML VIAL SQ SCH (16:30)
[2024-12-15] MEDS ORDERED: CEPHALEXIN500 MG PO (16:51)
[2024-12-15] MEDS ORDERED: CLEOCIN HCL300 MG PO (16:57)
[2024-12-15] MEDS: CLINDAMYCIN 600MG / 50ML 50 ML IV ONE (16:57)
[2024-12-15] MEDS ORDERED: IRBESARTAN 150 MG TAB PO SCH (21:00)
== END 2024-12-15 18:29 | disposition home or self-care (01) ==
LOC: ER 14:37 → ERHOLD 15:48 → MED/SURG2 18:56
PROVIDERS: ADMIT Internal Medicine; ATTEND Internal Medicine
DX: D50.9 Iron deficiency anemia, unspecified (principal); E11.69 Type 2 diabetes mellitus with other specified complication; L08.9 Local infection of the skin and subcutaneous tissue, unspecified; E11.628 Type 2 diabetes mellitus with other skin complications; E11.22 Type 2 diabetes mellitus with diabetic chronic kidney disease; E11.51 Type 2 diabetes mellitus with diabetic peripheral angiopathy without gangrene; I12.9 Hypertensive chronic kidney disease with stage 1 through stage 4 chronic kidney disease, or unspecified chronic kidney disease; L03.116 Cellulitis of left lower limb; N18.32 Chronic kidney disease, stage 3b; I48.0 Paroxysmal atrial fibrillation; Z79.01 Long term (current) use of anticoagulants; F03.90 Unspecified dementia, unspecified severity, without behavioral disturbance, psychotic disturbance, mood disturbance, and anxiety; Z91.81 History of falling; E03.9 Hypothyroidism, unspecified; I25.10 Atherosclerotic heart disease of native coronary artery without angina pectoris; Z79.4 Long term (current) use of insulin
CPT/HCPCS: 36415 ×2; 36430 ×2; 73660; 80053 ×2; 82607; 82728; 82746; 82948 ×2; 83540; 83735; 84466; 85014; 85018; 85025 ×2; 85610; 86850; 86900; 86920; 99252; 99284; G0378 ×2; J7050 ×2; P9016 ×2